=== PATIENT | female | born 1985 | race Caucasian/White ===

== ENCOUNTER 2017-02-25 22:01 | Emergency (ER) | payer MEDICAID, OTHER ==
[~2017-02-25] VITALS: Ht 154.9 cm; Wt 89.8 kg
[~2017-02-25 22:01] MED LIST: ARIP10TA11; FLUO20CA25; TPR100T
[2017-02-25] MEDS ORDERED: diphenhydrAMINE 50 MG/ML INJ (BENADRYL) ONE (22:07)
[2017-02-25] MEDS ORDERED: PROCHLORPERAZINE 10 MG/2ML INJ (COMPAZINE) ONE (22:07)
--- NOTE | 2017-02-25 22:14 | ED Headache ---
General Stated Complaint: HEADACHE Source: patient Exam Limitations: no limitations History of Present Illness Time seen by provider: 22:14 Initial Comments Patient lives in [facility]. Arrives here with reports of a frontal headache all day today. She was seen at the [facility] in [facility] today at about 5 p.m. when she received a Toradol injection for her headache. She states that typically Toradol injections worked very well for her. She has migraines frequently and takes control for them. This headache is frontal in nature and rated at 10 out of 10 which she states is fairly typical of her migraines. No head injury or fevers. She does have associated nausea without vomiting and photophobia. Timing/Duration: other (12 hours constant) Severity/Quality: constant Associated Symptoms: No confusion, No fatigue, No facial pain, No fever/chills Allergies and Home Medications Allergies Coded Allergies: Lamotrigine (Verified Allergy, Mild, 12/09/09) Home Medications Aripiprazole 10 Mg Tab.rapdis, (Reported) Fluoxetine Hcl 20 Mg Capsule, (Reported) Topiramate 100 Mg Tablet, (Reported) Constitutional: see HPI Eyes: No Symptoms Reported Ears, Nose, Mouth, Throat: no symptoms reported Respiratory: no symptoms reported Cardiovascular: no symptoms reported Genitourinary: no symptoms reported Musculoskeletal: no symptoms reported Skin: no symptoms reported Psychiatric/Neurological: See HPI, Headache Past Hezqckp-Bonrek-Zurjez Hx Patient Social History Recent Foreign Travel: No Contact w/Someone Who Travel: No Respiratory Hx Respiratory Disorders: No Cardiovascular Hx Cardiac Disorders: No Neurological Hx Neurological Disorders: No Reproductive System Hx Reproductive Disorders: No Genitourinary Hx Genitourinary Disorders: No Gastrointestinal Hx Gastrointestinal Disorders: No Musculoskeletal Hx Musculoskeletal Disorders: No Physical Exam Vital Signs Vital Sign - Last 12Hours 02/25/17 22:15 Temp 97.8 Pulse 76 Resp 18 B/P (MAP) 131/95 Pulse Ox 98 O2 Delivery Room Air Capillary Refill : General Appearance: WD/WN, no apparent distress HEENT: PERRL/EOMI, normal ENT inspection, TMs normal, pharynx normal Neck: non-tender, full range of motion Respiratory: lungs clear, normal breath sounds, no respiratory distress, no accessory muscle use Gastrointestinal: normal bowel sounds, non tender, soft Extremities: normal range of motion, non-tender Psychiatric: alert, oriented x 3 Crainal Nerves: normal hearing, normal speech, PERRL Progress/Results/Core Measures Results/Orders Medications Given in ED Current Medications Medications Dose Ordered Sig/Everardo Route Start Time Stop Time Status Last Admin Dose Admin Diphenhydramine HCl 50 mg STK-MED ONCE .ROUTE 02/25/17 22:07 02/25/17 22:12 DC 02/25/17 22:15 25 MG Prochlorperazine Edisylate 10 mg STK-MED ONCE .ROUTE 02/25/17 22:07 02/25/17 22:12 DC 02/25/17 22:15 10 MG Vital Signs/I&O Vital Sign - Last 12Hours 02/25/17 22:15 Temp 97.8 Pulse 76 Resp 18 B/P (MAP) 131/95 Pulse Ox 98 O2 Delivery Room Air Departure Communication Progress Notes 2229-Patient has had her shots on board of Compazine and Benadryl for a total of 15 minutes. She reports that her pain is now 4 out of 10 and she feels so much better. Upon arrival just a few minutes ago her headache was a 10 out of 10. We will discharged home. Impression Impression: Primary Impression: Headache Disposition: 01 HOME, SELF-CARE Condition: Improved Departure-Patient Inst. Decision time for Depature: 22:16 Referrals: NO,LOCAL PHYSICIAN (PCP) Primary Care Physician Patient Instructions: Headache, Adult (DC) Add. Discharge Instructions: 1. Return to ER for any concerns 2. See your doctor next week 3. DEREK SMITH APRN Feb 25, 2017 22:14
[2017-02-25 22:30] VITALS: BP 131/95
--- OUTSIDE RECORDS SUMMARY | 2017-03-01 08:34 | XMS REPORT | Continuity of Care Document ---
Author Author [employer] Organization [facility] Address Unknown Phone Unavailable Care Team Providers Care Acute Care Physician Name Role Phone [employer] Unavailable Unavailable Problems Problem Status Onset Date Classification Date Reported Comments Source Migraine (disorder) 2015 Diagnosis 07/20/2016 [facility] Neck pain (finding) 2015 Diagnosis 06/29/2016 [facility] Medications Medication Details Route Status Patient Instructions Ordering Provider Order Date Source No Known Medications No known medications Active [facility] Allergies, Adverse Reactions, Alerts Immunizations Immunization Date Given Site Status Last Updated Comments Source tetanus/diphth/pertuss (Tdap) adult/adol 12/26/2010 tetanus/diphth/pertuss (Tdap) adult/adol [facility] influenza virus vaccine 06/26/2008 influenza virus vaccine [facility] No data available for this section No data available for this section [facility] Results Vital Signs Encounters Location Location Details Encounter Type Encounter Number Reason For Visit Attending Provider ADM Date DC Date Status Source [facility] [id number] Ashutosh Ricci 06/25/2016 06/26/2016 [facility] [id number] Esperanza Hess 07/16/2016 07/17/2016 [facility] Procedures Procedure Code Date Perfomer Comments Source No data available for this section [facility] None [facility] Plan of Care Social History Assessment and Plan Family History Value Date Source Advance Directives Order Name Results Value Date Source
== END 2017-02-25 22:30 | disposition home or self-care (01) ==
LOC: EDUNIT# 22:01 → ER 22:05
DX: R51 Headache (principal)
CPT/HCPCS: 96372; 99284

== ENCOUNTER 2018-09-09 14:09 | Emergency (ER) | payer BC, OTHER | END 2018-09-09 15:30 | disposition home or self-care (01) | LOC: ER 14:09 ==

== ENCOUNTER 2019-04-01 20:52 | Emergency (ER) | payer BC ==
[~2019-04-01] VITALS: Ht 154.9 cm; Wt 90.7 kg
[2019-04-01] MEDS ORDERED: LORazepam INJ 2 MG/ML (ATIVAN) VIAL IVP ONE (21:15)
[2019-04-01] MEDS ORDERED: chlordiazePOXIDE 25 MG (LIBRIUM) CAP NON-FORMULARY PO ONE (21:15)
[2019-04-01] MEDS ORDERED: KETOROLAC 60 MG/2 ML VIAL IM ONE (22:15)
[2019-04-01] MEDS ORDERED: ORPHENADRINE 60 MG/2 ML (NORFLEX) AMP IM ONE (22:15)
--- NOTE | 2019-04-01 22:18 | ED Upper Extremity ---
General Chief Complaint: Upper Extremity Stated Complaint: PAIN IN RT ARM Nursing Triage Note: PT COMPLAINING OF RIGHT UPPER ARM PAIN FOR A FEW WEEKS Nursing Sepsis Screen: No Definite Risk History of Present Illness Date Seen by Provider: Apr 01, 2019 Time Seen by Provider: 22:13 Initial Comments as above vague hx of R arm pain says she noticed knot above elbow lateral pain radiates from that area up to shoulder and neck and to hand fingers never was any fall or injury is right handed, says she's been doing a lot of manual work with arm Allergies and Home Medications Allergies Coded Allergies: lamotrigine (Verified Allergy, Mild, 12/09/09) Patient Home Medication List Home Medication List Reviewed: Yes Review of Systems Constitutional: no symptoms reported EENTM: no symptoms reported Respiratory: no symptoms reported Cardiovascular: no symptoms reported Musculoskeletal: other (pain in entire right arm centered above elbow) Past Ixvwrmi-Jqhtvj-Ydqgjx Hx Patient Social History Alcohol Use: Denies Use Recreational Drug Use: No 2nd Hand Smoke Exposure: No Recent Foreign Travel: No Contact w/Someone Who Travel: No Recent Infectious Disease Expo: No Recent Hopitalizations: No Physical Abuse: No Sexual Abuse: No Immunizations Up To Date Tetanus Booster (TDap): Less than 5yrs Seasonal Allergies Seasonal Allergies: No Past Medical History Surgeries: No Respiratory: No Cardiac: No Neurological: Yes Headaches /Migraines Reproductive Disorders: No Sexually Transmitted Disease: No Genitourinary: No Gastrointestinal: No Musculoskeletal: No Endocrine: No HEENT: No Cancer: No Psychosocial: No Integumentary: No Physical Exam Vital Signs Vital Signs - First Documented 04/01/19 21:05 Temp 99.2 Pulse 96 Resp 20 B/P (MAP) 129/84 (99) Pulse Ox 99 O2 Delivery Room Air Capillary Refill : Less Than 3 Seconds Height, Weight, BMI Height: 5'1.00" Weight: 200lbs. oz. 90.149210to; BMI Method:Stated General Appearance: WD/WN HEENT: PERRL/EOMI Neck: non-tender, full range of motion, supple Cardiovascular: regular rate, rhythm Respiratory: chest non-tender, lungs clear Gastrointestinal: soft, no organomegaly Back: normal inspection Shoulder: normal inspection Elbow/Forearm: normal inspection, no evidence of injury, Right, deformity, ecchymosis, limited ROM, swelling Progress/Results/Core Measures Results/Orders My Orders Orders - RIGO CASTRO MD Ketorolac Injection (Toradol Injection) (04/01/19 22:15) Orphenadrine Injection (Norflex Injectio (04/01/19 22:15) Nursing Communication (Order) (04/01/19 22:11) Vital Signs/I&O 04/01/19 21:05 Temp 99.2 Pulse 96 Resp 20 B/P (MAP) 129/84 (99) Pulse Ox 99 O2 Delivery Room Air Blood Pressure Mean: 99 Departure Impression Primary Impression: Muscle strain of right upper arm Qualified Codes: S46.911A - Strain of unspecified muscle, fascia and tendon at shoulder and upper arm level, right arm, initial encounter Disposition: 01 HOME, SELF-CARE Condition: Improved Departure-Patient Inst. Decision time for Depature: 22:17 Referrals: NO,LOCAL PHYSICIAN (PCP/Family) Primary Care Physician Patient Instructions: Muscle Strain (DC), How to Use a Shoulder Sling Scripts Hydrocodone Bit/Acetaminophen (Hydrocodone/Acetaminophen 5/325mg Tablet) 1 Tab Tab 1 EACH PO Q4-6HR PRN for PAIN-MODERATE MDD 10 for 3 Days, TAB Prov: RIGO CASTRO MD 04/01/19 RIGO CASTRO MD Apr 01, 2019 22:18
[2019-04-01] MEDS ORDERED: ACHD5005 PO (22:22)
[2019-04-01 22:34] VITALS: BP 130/82
== END 2019-04-01 22:34 | disposition home or self-care (01) ==
LOC: EDUNIT# 20:52 → ER FS 20:54
DX: S46.911A Strain of unspecified muscle, fascia and tendon at shoulder and upper arm level, right arm, initial encounter (principal); G43.909 Migraine, unspecified, not intractable, without status migrainosus; Z88.8 Allergy status to other drugs, medicaments and biological substances; X50.9XXA Other and unspecified overexertion or strenuous movements or postures, initial encounter
CPT/HCPCS: 99284

== ENCOUNTER 2019-06-22 15:55 | Emergency (ER) | payer BC ==
[~2019-06-22] VITALS: Ht 154.9 cm; Wt 95.6 kg
[~2019-06-22 15:55] MED LIST changes: +ACHD5005 PO
[2019-06-22] MEDS ORDERED: PROMETHAZINE INJ 25 MG/ML (PHENERGAN) AMP IM ONE (16:30)
[2019-06-22] MEDS ORDERED: KETOROLAC 60 MG/2 ML VIAL IM ONE (16:30)
--- NOTE | 2019-06-22 16:43 | ED General ---
General Stated Complaint: MIGRAINE History of Present Illness Date Seen by Provider: Jun 22, 2019 Time Seen by Provider: 16:38 Initial Comments 33-year-old female says she had onset of headache this morning left retro-orbital throbbing associated with photophobia and nausea but no vomiting Patient denies trauma, says this headache is very similar to multiple headaches she's had in the past and brings up the fact that she has responded to Toradol and Phenergan in the past Allergies and Home Medications Allergies Coded Allergies: lamotrigine (Verified Allergy, Mild, 12/09/09) Home Medications Hydrocodone Bit/Acetaminophen 1 Tab Tab, 1 EACH PO Q4-6HR PRN for PAIN-MODERATE Prescribed by: RIGO CASTRO on 04/01/19 2222 Patient Home Medication List Home Medication List Reviewed: Yes Review of Systems Review of Systems Constitutional: No chills, No fever EENTM: No ear pain Respiratory: no symptoms reported Cardiovascular: no symptoms reported Gastrointestinal: No abdominal pain; nausea; No vomiting Genitourinary: no symptoms reported Musculoskeletal: no symptoms reported Past Elqsyyp-Jnegaq-Mvwsfl Hx Patient Social History 2nd Hand Smoke Exposure: No Recent Foreign Travel: No Contact w/Someone Who Travel: No Recent Hopitalizations: No Immunizations Up To Date Tetanus Booster (TDap): Less than 5yrs Seasonal Allergies Seasonal Allergies: No Past Medical History Surgeries: No Respiratory: No Cardiac: No Neurological: Yes Headaches /Migraines Reproductive Disorders: No Sexually Transmitted Disease: No Genitourinary: No Gastrointestinal: No Musculoskeletal: No Endocrine: No HEENT: No Cancer: No Psychosocial: No Integumentary: No Physical Exam Vital Signs Vital Signs - First Documented 06/22/19 16:10 Temp 36.2 Pulse 83 Resp 18 B/P (MAP) 121/73 (89) Pulse Ox 96 O2 Delivery Room Air Capillary Refill : Height, Weight, BMI Height: 5'1.00" Weight: 200lbs. oz. 90.193344gg; BMI Method:Stated General Appearance: Mild Distress Eyes: Bilateral Eye PERRL, Bilateral Eye EOMI HEENT: Moist Mucous Membranes Neck: Full Range of Motion, Supple Respiratory: Normal Breath Sounds, No Accessory Muscle Use Cardiovascular: Regular Rate, Rhythm Gastrointestinal: Normal Bowel Sounds, Non Tender, Soft Neurologic/Psychiatric: Alert, Oriented x3, No Motor/Sensory Deficits, Normal Mood/Affect, delivery specialist II-XII Norm as Tested Progress/Results/Core Measures Suspected Sepsis SIRS Temperature: Pulse: Respiratory Rate: Blood Pressure / Mean: Results/Orders My Orders Orders - RIGO CASTRO MD Ketorolac Injection (Toradol Injection) (06/22/19 16:30) Promethazine Injection (Phenergan Injec (06/22/19 16:30) Medications Given in ED Current Medications Medications Dose Ordered Sig/Everardo Route Start Time Stop Time Status Last Admin Dose Admin Ketorolac Tromethamine 60 mg ONCE ONCE IM 06/22/19 16:30 06/22/19 16:31 DC 06/22/19 16:47 60 MG Promethazine HCl 25 mg ONCE ONCE IM 06/22/19 16:30 06/22/19 16:31 DC 06/22/19 16:47 25 MG Vital Signs/I&O 06/22/19 16:10 Temp 36.2 Pulse 83 Resp 18 B/P (MAP) 121/73 (89) Pulse Ox 96 O2 Delivery Room Air Capillary Refill : Progress Note : Progress Note Headache is improved after IM meds not resolved but significantly improved Departure Impression Primary Impression: Migraine Qualified Codes: G43.909 - Migraine, unspecified, not intractable, without status migrainosus Disposition: 01 HOME, SELF-CARE Condition: Improved Departure-Patient Inst. Decision time for Depature: 17:47 Referrals: NO,LOCAL PHYSICIAN (PCP/Family) Primary Care Physician Patient Instructions: Migraine Headache (DC) Scripts Ondansetron (Ondansetron Odt) 4 Mg Tab.rapdis 4 MG PO TID for Nausea, #14 TAB Prov: RIGO CASTRO MD 06/22/19 Butalbital/Aspirin/Caffeine (Fiorinal 50-325-40 mg Capsule) 1 Each Capsule 1 EACH PO QID for Headache, #20 CAP Prov: RIGO CASTRO MD 06/22/19 RIGO CASTRO MD Jun 22, 2019 16:43 POS
[2019-06-22] MEDS ORDERED: BUTA1CAP17 PO (17:49)
[2019-06-22] MEDS ORDERED: ONDA4TAB11 PO (17:49)
[2019-06-22 18:27] VITALS: BP 122/73
== END 2019-06-22 18:27 | disposition home or self-care (01) ==
LOC: EDUNIT# 15:55 → ER FS 15:56
DX: G43.909 Migraine, unspecified, not intractable, without status migrainosus (principal); Z88.8 Allergy status to other drugs, medicaments and biological substances
CPT/HCPCS: 96372; 99284

== ENCOUNTER 2020-01-22 19:32 | Emergency (ER) | payer BC, OTHER ==
[~2020-01-22] VITALS: Ht 165.1 cm; Wt 95.4 kg
[~2020-01-22 19:32] MED LIST changes: +BUTA1CAP17 PO; +ONDA4TAB11 PO
[2020-01-22] MEDS ORDERED: ONDANSETRON 4 MG (ZOFRAN) ORAL DISSOLVE TAB PO STA (20:01)
--- NOTE | 2020-01-22 20:04 | ED Headache ---
General Chief Complaint: Head/Cervical Problems Stated Complaint: MIGRIANE Nursing Triage Note: pt states typical migraine for her, started mid day today Nursing Sepsis Screen: No Definite Risk Source: patient Exam Limitations: no limitations History of Present Illness Date Seen by Provider: Jan 22, 2020 Time Seen by Provider: 19:50 Initial Comments Patient arrives by private conveyance to the ER with chief complaint of a headache that started after mowing the grass this morning. She says around her eyes and she has tenderness in her some bilateral sinuses without drainage but she does have congestion. She has a history of migraine headaches. She took Aleve 3 hours ago as well as CBD oil which did not give her any relief. She is to follow with a provider in [place] and was on a prophylactic medication for her migraines but since she no longer falls with her she says no one has refilled medicine for her. She does not know the name of the medicine is. She has allergies to several antiseizure medicines it could've been used for prophylaxis. She's having no fever, chills, cough, shortness of breath. She has some nausea without vomiting. She just completed her period last week. Allergies and Home Medications Allergies Coded Allergies: lamotrigine (Verified Allergy, Mild, 12/09/09) Home Medications Butalbital/Aspirin/Caffeine 1 Each Capsule, 1 EACH PO QID Prescribed by: RIGO CASTRO on 06/22/19 174 Hydrocodone Bit/Acetaminophen 1 Tab Tab, 1 EACH PO Q4-6HR PRN for PAIN-MODERATE Prescribed by: RIGO CASTRO on 04/01/19 2222 Ondansetron 4 Mg Tab.rapdis, 4 MG PO TID Prescribed by: RIGO CASTRO on 06/22/19 1749 Patient Home Medication List Home Medication List Reviewed: Yes Review of Systems Review of Systems Constitutional: No chills, No diaphoresis Eyes: Denies Blindness, Denies Blurred Vision Ears, Nose, Mouth, Throat: denies ear pain, denies ear discharge Respiratory: No cough, No short of breath Cardiovascular: No chest pain, No edema Gastrointestinal: No abdominal pain; nausea; No vomiting Genitourinary: No discharge, No dysuria : No (negative test in the ER) Musculoskeletal: No back pain, No joint pain All Other Systems Reviewed Negative Unless Noted: Yes Past Uxemdsi-Iemcwk-Arybuf Hx Patient Social History Alcohol Use: Denies Use Recreational Drug Use: No Smoking Status: Never a Smoker 2nd Hand Smoke Exposure: No Recent Foreign Travel: No Contact w/Someone Who Travel: No Recent Infectious Disease Expo: No Recent Hopitalizations: No Physical Abuse: No Sexual Abuse: No Mistreated: No Fear: No Immunizations Up To Date Tetanus Booster (TDap): Less than 5yrs Seasonal Allergies Seasonal Allergies: No Past Medical History Surgeries: Yes (Cyst removal from knee) Respiratory: No Cardiac: No Neurological: Yes Headaches /Migraines Reproductive Disorders: No Sexually Transmitted Disease: No Genitourinary: No Gastrointestinal: No Musculoskeletal: No Endocrine: No HEENT: No Cancer: No Psychosocial: No Integumentary: No Blood Disorders: No Physical Exam Vital Signs Vital Signs - First Documented 01/22/20 19:48 Temp 36.9 Pulse 88 Resp 18 B/P (MAP) 147/86 (106) Pulse Ox 98 O2 Delivery Room Air Capillary Refill : Less Than 3 Seconds Height, Weight, BMI Height: 5'1.00" Weight: 200lbs. oz. 90.637492tm; 34.00 BMI Method:Stated General Appearance: WD/WN, mild distress HEENT: PERRL/EOMI, TMs normal, pharynx normal, other (tenderness to palpation over the frontal and maxillary sinuses bilaterally. Nasal passage way is clear with some mild congestion but no purulence or discharge) Neck: non-tender, full range of motion, supple, normal inspection Cardiovascular: normal peripheral pulses, regular rate, rhythm Respiratory: lungs clear, normal breath sounds Gastrointestinal: normal bowel sounds, non tender, soft Psychiatric: alert, oriented x 3 Crainal Nerves: normal hearing, normal speech, PERRL Motor/Sensory: no motor deficit, no sensory deficit Skin: normal color, warm/dry Progress/Results/Core Measures Results/Orders My Orders Orders - CARA CASEY Urine Bedside (01/22/20 19:50) Dexamethasone Injection (Decadron Inject (01/22/20 20:15) Promethazine Injection (Phenergan Injec (01/22/20 20:15) Ondansetron Oral Dissolve Tab (Zofran (01/22/20 20:01) Ketorolac Injection (Toradol Injection) (01/22/20 20:15) Diphenhydramine Tablet (Benadryl Tablet) (01/22/20 20:15) Vital Signs/I&O 01/22/20 19:48 Temp 36.9 Pulse 88 Resp 18 B/P (MAP) 147/86 (106) Pulse Ox 98 O2 Delivery Room Air Blood Pressure Mean: 106 Progress Progress Note : Time: 20:07 Progress Note Migraine versus sinus headache. Plan to treat her with Tylenol, half a dose of Toradol, Benadryl and Phenergan as well as a dose of Decadron which can help reduce congestion in her nose as well as recurrent migraines. We'll put her out with a prescription for Augmentin for her to start taking if she doesn't see improvement in the next day or so and her headache. Suspect maxillary sinus infection. Departure Impression Primary Impression: Migraine Qualified Codes: G43.009 - Migraine without aura, not intractable, without status migrainosus Additional Impressions: Sinus headache Acute sinusitis Qualified Codes: J01.00 - Acute maxillary sinusitis, unspecified Disposition: HOME, SELF-CARE Condition: Stable Departure-Patient Inst. Decision time for Depature: 20:08 Referrals: NO,LOCAL PHYSICIAN (PCP/Family) Primary Care Physician Patient Instructions: Migraines in Adults, Sinusitis in Adults Add. Discharge Instructions: Your migraine headache may have been triggered by sinus infection. We have given you a dose of steroids which should last for several days. If you does not see improvement in the next 1-2 days or if you experience fever or nasal discharge then you should start the antibiotics that were sent to the [facility] pharmacy. One tablet twice a day for the next 10 days. Drink lots of fluids and get lots of sleep over the next few days. Plan to reestablish care with a primary care doctor and discuss medicines that might prevent headaches. Continue taking your allergy medicine such as Claritin, Zyrtec etc. All discharge instructions reviewed with patient and/or family. Voiced understanding. Scripts Amoxicillin/Potassium Clav (Augmentin 875-125 Tablet) 1 Each Tablet 1 EACH PO BID for 10 Days, #20 TAB 0 Refills Prov: CARA CASEY 01/22/20 CARA CASEY Jan 22, 2020 20:04
[2020-01-22] MEDS ORDERED: AMOX-358 PO (20:12)
[2020-01-22] MEDS ORDERED: ACETAMINOPHEN 500 MG TAB (TYLENOL) PO ONE (20:15)
[2020-01-22] MEDS ORDERED: diphenhydrAMINE 25 MG TAB (BENADRYL) PO ONE (20:15)
[2020-01-22] MEDS ORDERED: DEXAMETHASONE 4 MG/ML SDV (DECADRON) IM ONE (20:15)
[2020-01-22] MEDS ORDERED: KETOROLAC 30 MG/ML VIAL IM ONE (20:15)
[2020-01-22] MEDS ORDERED: PROMETHAZINE INJ 25 MG/ML (PHENERGAN) AMP IM ONE (20:15)
[2020-01-22 20:22] VITALS: BP 142/110
--- OUTSIDE RECORDS SUMMARY | 2020-01-22 20:25 | XMS REPORT ---
Author Author [employer] at risk specialist [facility] [place] Address [address] [address] Care Team Providers Care Bundles Hanger Name Role Phone NO, LOCAL PHYSICIAN Unavailable Unavailable DEREK SMITH APRN Unavailable Unavailable CARA CASEY Unavailable Unavailable TEA KOTHARI Unavailable Unavailable RIGO CASTRO MD Unavailable Unavailable NO, LOCAL PHYSICIAN PCP Unavailable Unavailable Unavailable CARA CASEY MD Unavailable Unavailable Unavailable Unavailable Unavailable Unavailable Unavailable Unavailable Unavailable Unavailable Unavailable Unavailable Allergies No Information Medications Medication Ingredient Drug Dose Dates Status Sig Sig Care Class(es) (Normalized) (Original) Provid er no Acetaminoph Opioid 04-02-20 Complete no Acetaminophe no information en / Agonist 19 - d information n/Hydrocodo n name (1 source.) HYDROcodone 04-04-20 e Bitart 19 Discontinued 1 ORAL Q4-6HR as needed for Pain-Moderat e 3 April 01, 2019 10:22pm April 04, 2019 no ARIPiprazol Atypical no no Aripiprazole no information e Antipsychot informat information Active N OT name (1 source.) ic ion APPLICABLE aspirin 325 Aspirin / Platelet 06-22-20 Complete no Butalbit al/A no mg / butalbital Aggregation 19 - d information spirin/C affe name butalbital / Caffeine Inhibitor, 06-22-20 ine 50 mg / Barbiturate 19 - Discontinued caffeine 40 , 06-22-20 1 ORAL Four mg oral Nonsteroida 19 Times Daily capsule (1 l for Headache source.) Anti-inflam June Drug, 5:49pm Central (One-Time) Nervous System Stimulant, Methylxanth ine ondansetron Ondansetron Serotonin-3 06-22-20 Complete no Ond ansetron no 4 mg Receptor 19 - d information Discontinued n davis disintegrat Antagonist 11-01-20 4 ORAL Three ing oral 19 - Times A Day tablet (1 06-22-20 for Nausea source.) June 22, 2019 5:49pm (One-Time) Problems Active Problems Problem Normalized Date Last Normalized Normalized Provider Fa cility Classification Problem(s) Recorded Problem Problem Sta tus Duration Allergic Allergy status Episodic Active ILSET SIBLEY , No t Available reactions (10 to other MD (36008) sources.) drugs, medicaments and biological substances status Headache; Migraine Chronic Active LISET SIBLEY , Not Avai lable including Translations: (28709) migraine (13 [ MIGRAINE, sources.) UNSP, NOT INTRACTABLE, WITHOUT] Other Pain in right Episodic Active BUNNY MOODY Via connective arm [facility] tissue disease [facility] - (4 sources.) [place] ([address]00) Sprains and Strain of Episodic Active BUNNY MOODY V ia strains (4 unspecified [facility] sources.) muscle, fascia Hospital - and tendon at [place] shoulder and (70684) upper arm level, right arm, initial encounter Past or Other Problems Problem Normalized Date Last Normalized Normalized Provider Fa cility Classification Problem(s) Recorded Problem Problem Sta tus Duration External cause Other and no information no information BUNNY CHAKRABORTY Via codes: unspecified [facility] (2 or strenuous [place] sources.) movements or (66835) postures, initial encounter External cause Other and Episodic Completed VC Yaw MOODY Via codes: unspecified [facility] (2 or strenuous [place] sources.) movements or (69402) postures, initial encounter Procedures The data below is from unstructured sourcesNo procedure information available.No procedure information available.No procedure information available.No procedure information available.No procedure informa tion available. Immunizations Normalized Immunization Date Notes Care Provider Facili ty Immunization influenza, 09-04-2019 no information no name [facility] ealt injectable, [facility] [place] quadrivalent, - [facility] contains (40992) preservative no information 06-22-2019 no information LOCAL NO [facility] (69186) Results Test Name Value Interpretation Reference Range Date Time Fa cility (Normalized) (Normalized) (Medline Reference) not yet categorized on null BLO Negative (no code) [facility] ([id number]) KET slightly (no code) [facility] cloudy~yellow~ye [facility] s~negative~negat [facility] cinthya~negative (66140) SG 1.030 (no code) [facility] (73212) URO 0 (no code) [facility] (58155) laboratory on null pH (Bld) 7.0 [pH] (no code) 7.38 - 7.42 [pH] [facility] (17109) Protein (U) Negative (no code) 0 - 20 mg/dL [facility] alth [Mass/Vol] [facility] () not yet categorized on 2019-11-01 Control pos~neg~pass (no code) [facility] (72822) Exp date 06-20-2022 (no code) [facility] ([id number]) Lot # [id number] (no code) [facility] (37798) laboratory on 2019-09-28 Bacteria SEE NOTE (no code) [facility] identified Cx [facility] (U) [facility] (08968) laboratory on 2019-07-25 Free T4 0.9 ng/dL (N) 0.9 - 2.2 ng/dL [facility] [Mass/Vol] [facility] (40912) TSH Qn 3.55 m[IU]/L (N) 0.4 - 4 m[IU]/L [facility] (00219) Vital Signs The data below is from unstructured sources Vital Response Date/Time Temperature (Fahrenheit) 97.8 degree s F (97.6 - 99.5) 02/25/2017 10:15pm Temperature (Calculated Celsius) 36. 97697 degrees C (36.4 - 37.5) 02/25/2017 10:15pm Temperature Source Temporal 02/25/2017 10:15pm Pulse Rate (adult) 76 bpm (60 - 90) 02/25/2017 10:15pm Respiratory Rate 18 bpm (12 - 24) 02/25/2017 10:15pm O2 Sat by Pulse Oximetry 98 % (88 - 100) 02/25/2017 10:15pm Blood Pressure 131/95 mm Hg 02/25/2017 10:15pm Blood Pressure Mean 107 mm Hg 02/25/2017 10:15pm Pain Numeric Pain Scale 10-Worst Possible Pain 02/25/2017 10:15pm Height (Feet) 5 feet 02/2017 10:15pm Height (Inches) 1.00 inches 02/25/2017 10:15pm Height (Calculated Centimeters) 154. 570926 cm 02/25/2017 10:15pm Weight (Pounds) 198 pounds 02/25/2017 10:15pm Weight (Calculated Kilograms) 89.811 290 kilograms 02/25/2017 10:15pm Capillary Refill Capillary Refill Less Than 3 Seconds 02/25/2017 10:15pm Height 5 ft 1 in 017 10:15pm Weight 198 lb 02/25/2017 10:15pm Body Mass Index 37.4 kg/m^2 02/25/2017 10:15pm Vital Response Date/Time Temperature (Fahrenheit) 98.0 degree s F (97.6 - 99.5) 09/09/2018 3:24pm Temperature (Calculated Celsius) 36. 24292 degrees C (36.4 - 37.5) 09/09/2018 3:24pm Temperature Source Temporal 09/09/2018 3:24pm Pulse Rate (adult) 80 bpm (60 - 90) 09/09/2018 3:24pm Respiratory Rate 18 bpm (12 - 24) 09/09/2018 3:24pm O2 Sat by Pulse Oximetry 99 % (88 - 100) 09/09/2018 3:24pm Blood Pressure 103/75 mm Hg 09/09/2018 3:24pm Blood Pressure Mean 84 mm Hg (65 - 110) 09/09/2018 3:24pm Pain Numeric Pain Scale 3 3:24pm Height (Feet) 5 feet 2:15pm Height (Inches) 6.00 inches 09/09/2018 2:15pm Height (Calculated Centimeters) 167. 354967 cm 09/09/2018 2:15pm Height Method Estimated 09/09/2018 2:15pm Weight (Pounds) 160 pounds 09/09/2018 2:15pm Weight (Calculated Grams) 76793.78 gm 09/09/2018 2:15pm Weight (Calculated Kilograms) 72.574 780 kilograms 09/09/2018 2:15pm Weight Method Stated 2:15pm Capillary Refill Capillary Refill Less Than 3 Seconds 09/09/2018 2:15pm Height 5 ft 6 in 019 2:15pm Weight 160 lb 09/09/2018 2:15pm Body Mass Index 25.8 kg/m^2 09/09/2018 2:15pm Vital Reading Result Col lection Date/Time Vital Reading Result Col lection Date/Time Interventions No Information Plan of Treatment Normalized Care Care Detail Care Activity Date Care Provider F acility Activity Patient Education Migraine Headache no information LOCAL NO Pender Via (DC) [facility] ([id number]) Patient referral no information no information LOCAL NO Asc ension [facility] ([id number]) Goals Patient Goal Desired Goal no information no information Social History Normalized Code Original Code Date Value Tobacco smoking status Tobacco smoking status no information Never smoked tobacco NHIS NHIS (finding) no information no information 06-22-2019 Occasionally Us es no information no information 12-09-2009 No no information no information 06-22-2019 Never a Smoker Sex Assigned At Sex Assigned At no information F emale Functional Status No Information Mental Status Status Assessment Result Care Provider Facility Cognitive function Comprehension Ability LOCAL NO Asce nsion Via [facility] ([id number]) Encounters Encounter Normalized Encounter Encounter Diagnosis Care Provi mariel Organization Date Type 01-22-2020 Emergency department no information CARA CASEY MD (no [facility] patient visit phone) [facility] (no phone) 06-22-2019 Emergency department no information (no phone) [facility] - patient visit Hospital (no phone) 06-22-2019 06-22-2019 Emergency department no information no name no organization name - patient visit 06-22-2019 04-01-2019 Emergency department no information no name no organization name - patient visit 04-01-2019 04-01-2019 Emergency department no information no name no organization name - patient visit 04-01-2019 09-09-2018 Emergency department no information LISET Rasheed [employer] no organization name - patient visit Phone: 09-09-2018 11-11-2019 Patient encounter no information TEA Bertrand TAYE (no [facility]) (no phone) [facility] (no phone) 11-07-2019 Patient encounter no information TEA Bertrand TAYE (no [facility] procedure phone) [facility] (no phone) 11-01-2019 Patient encounter no information (no phone) [facility] procedure [facility] (no phone) 10-12-2019 Patient encounter no information TEA Bertrand TAYE (no [facility] procedure phone) [facility] (no phone) 09-28-2019 Patient encounter no information TEA Bertrand TAYE (no [facility] procedure phone) (no phone) (no [facility] phone) [place] (no phone) 09-04-2019 Patient encounter no information no name no or ganization name procedure 08-23-2019 Patient encounter no information no name no or ganization name procedure 08-14-2019 Patient encounter no information no name no or ganization name procedure 07-25-2019 Patient encounter no information no name no or ganization name procedure 06-22-2019 Patient encounter no information no name no or ganization name procedure 05-04-2019 Patient encounter no information no name no or ganization name procedure 05-04-2019 Patient encounter no information no name no or ganization name procedure 04-01-2019 Patient encounter no information no name no or ganization name procedure 03-10-2019 Patient encounter no information no name no or ganization name procedure 03-06-2019 Patient encounter no information no name no or ganization name procedure 02-13-2019 Patient encounter no information no name no or ganization name procedure 01-08-2019 Patient encounter no information no name no or ganization name procedure 09-15-2018 Patient encounter no information no name no or ganization name procedure 09-09-2018 Patient encounter no information no name no or ganization name procedure 08-24-2018 Patient encounter no information no name no or ganization name procedure Medical Equipment The data below is from unstructured sourcesNo Medical Equipment Information available Payers Normalized Payer Value [employer] Blue [employer] [id number] ([id number]) [employer] Blue [employer] no information ([id number]) Evaluation note Note Type Note Facility Evaluation No Assessments Information Available A scension note Via [facility] ([id number]) Advance Directives Directive Response Recor ded Date/Time Advance Directives No 10:15pm Health Care Power of Referral Nurse No 02/25/17 10:15pm Organ Donor No 02/25/17 10:15pm Resuscitation Status Full Code 02/25/17 10:15pm Directive Response Recor ded Date/Time Advance Directives No 10:15pm Health Care Power of Referral Nurse No 02/25/17 10:15pm Organ Donor No 02/25/17 10:15pm Advance Directive Response Recorded Date/Time Advance Directives No No 2018 4:10pm Health Care Power of Referral Nurse No June 22, 2019 4:10pm Organ Donor No June 22, 2019 4:10pm Resuscitation Status Full Code June 22, 2019 4:10pm Discharge Instructions No hospital discharge instruction information available.No hospital discharge instruction information available. Chief Complaint and Reason for Visit Chief Complaint Head/Cervical Proble ms Reason for Visit Migraine Chief Complaint Head/Cervical Proble ms Reason for Visit [id number] Additional Source Comments This clinical document has been generated using [employer] software that has been certified by the Office of the National Coordinator for Health Information Technology (ONC 15.99.04.3023.[id number].[id number]) and the National Committee for A P Mechanic (NCQA, as an eMeasure certified technology). FOR RECORDS PERTAINING TO PATIENTS WHO ARE OR HAVE BEEN ENROLLED IN A CHEMICAL D EPENDENCY/SUBSTANCE ABUSE PROGRAM, SOME INFORMATION MAY BE OMITTED. This clinica l summary was aggregated from multiple sources. Caution should be exercised in using it in the provision of clinical care. This summary normalizes information from multiple sources, and as a consequence, information in this document may ma terially change the coding, format and clinical context of patient data. In vasu tion, data may be omitted in some cases. CLINICAL DECISIONS SHOULD BE BASED ON T HE PRIMARY CLINICAL RECORDS. [employer] provides no warranty or guara ntee of the accuracy or completeness of information in this document.The followi ng information is based on time limited clinical information
--- OUTSIDE RECORDS SUMMARY | 2020-01-22 20:25 | XMS REPORT | Summary of Care ---
Author Author [facility] Address Unknown Phone Unavailable Encounter [facility] [id number] Date(s): 09/24/19 - 09/24/19 [facility] [address] [place] [address]- [place] [phone] Discharge Disposition: Home - 01 Attending Physician: COURTNEY ESCALERA DO Admitting Physician: COURTNEY ESCALERA DO Referring Physician: COURTNEY ESCALERA DO Vital Signs No data available for this section Problem List No data available for this section Allergies, Adverse Reactions, Alerts No data available for this section Medications No data available for this section Results No data available for this section Immunizations No data available for this section Procedures No data available for this section Social History Social History Type Response Functional Status No data available for this section Assessment and Plan No data available for this section Hospital Discharge Instructions No data available for this section
--- OUTSIDE RECORDS SUMMARY | 2020-01-22 20:25 | XMS REPORT | Continuity of Care Document ---
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 childbirth 09/20/2019 Diagnosis 09/20/2019 [facility] Disorder of thyroid gland 09/20/2019 Problem 09/20/2019 [facility] Medications Medication Details Route Status Patient Instructions Ordering Provider Order Date Source Benadryl Benadryl Active [facility] Allergies, Adverse Reactions, Alerts Substance Category Reaction Severity Reaction type Status Date Reported Comments Source Lamictal Allergy to substance 09/20/2019 [facility] Vagisil Anti-itch Nausea Allergy to substance 09/20/2019 [facility] Immunizations No Data Provided for This Section Results Order Name Results Value Reference Range Date Interpretation Comments Source No data available for this section No data available for this section [facility] Pathology Reports No Data Provided for This Section Diagnostic Reports Report Value Date Source US Breast Complete Bilateral Patient Name: JUSTINA CARRASCO : 1985 [facility] [address] [place] [address]- Radiology Reports CPT code 74464 CDM code CDM description [id number] US Breast Complete Bilateral Reason For Exam N64.3 Report EXAM: BREAST ULTRASOUND BILATERAL. INDICATION: Bilateral nipple discharge. Masses seen on diagnostic mammogram. FINDINGS: Regions evaluated include all four quadrants, subareolar area and axilla. There are numerous bilateral small cysts as well as groups of cysts or minimally complex cyst with occasional dilated duct. There is no solid mass or shadowing mass. No significant axillary adenopathy. IMPRESSION: Negative bilateral breast ultrasound Dictated by Dr. Abdias Christiansen MD Dictated on 2019 12:[address] Abdias Christiansen MD Location [id number] Final Transcribed by: MARLYS 09/24/19 12:30 Signed by: ABDIAS CHRISTIANSEN MD 09/24/19 12:30 2019 [facility] [place] Mammogram Diagnostic Digital Rick Patient Name: JUSTINA CARRASCO : 1985 [facility] [address] [place] [id number]- Radiology Reports CPT code 70410 CDM code CDM description [id number] [place] Mammogram Diagnostic Digital Rick Reason For Exam N64.3 Report . EXAM: MAMMOGRAM FULL FIELD DIGITAL WITDIAGNOSTIC BILATERAL INDICATION: Chronic, bilateral nipple discharge. Density: B---- 25-50 % - scattered fibroglandular densities FINDINGS: No prior study for comparison. Breast parenchymal tissue is moderately dense. The MLO view of the right breast shows possible 13 x 10 mm oval density approximately 8 cm posterior to the nipple in the slightly upper breast. Left breast shows nodular regions. There is a 9 x 8 mm nodule superior to the nipple level fairly superficial and superiorly. This measures approximately 1 cm deep to the skin. There is a more posterior oval nodule measuring 11 x 8. Tiny more posterior central ovary or nodule measures 4 x 2 mm. There is no suspicious calcification, skin thickening, nipple retraction or significant axillary adenopathy. IMPRESSION: 1. Possible oval nodules in each breast. This may represent nodular breast tissue. Bilateral breast ultrasound be obtained for further evaluation. Subsequent ultrasound demonstrates these masses represent cysts. Routine follow-up suggested. BI RADS 2- Benign Findings A patient report letter will also be mailed directly to the patient within [address]. [address] Abdias Christiansen MD Dictated on 2019 11:[address] Abdias Christiansen MD Radiology Reports Report Location [id number] Mammography Final Transcribed by: MARLYS 09/24/19 15:52 Signed by: ABDIAS CHRISTIANSEN MD 09/24/19 15:52 Technologist: YAMILETH 2019 [facility] Consultation Notes No Data Provided for This Section Discharge Summaries No Data Provided for This Section History and Physicals No Data Provided for This Section Vital Signs Vital Sign Value Date Comments Source BP Diastolic 76 mm[Hg] 09/20/2019 [facility] Height 61 [in_i] 09/20/2019 [facility] BMI (Body Mass Index) 39.7 kg/ m2 09/20/2019 [facility] BP Systolic 114 mm[Hg] 09/20/2019 [facility] Body Weight 210.2 [lb_av] 09/20/2019 [facility] Encounters Location Location Details Encounter Type Encounter Number Reason For Visit Attending Provider ADM Date DC Date Status Source [facility] 110 O [id number] N64.3 MATILDE CHAVARRIA DO 2019 2019 Active [facility] Matilde Chavarria, DO: [address] [place] [address], Ph. [phone] [id number] Matilde Chavarria 09/20/2019 [facility] Procedures Procedure Code Date Perfomer Comments Source MAMMO, diagnostic, digital, bilateral 09/20/2019 [facility] Operative Procedure on Knee [facility] Percutaneous Extraction of Kidney Stone with Fragmentation Procedure [facility] Bilateral Tubal Ligation [facility] Plan of Care Plan of Care Date Source Reminders Provider Appointments None recorded. Lab None recorded. Referral None recorded. Procedures None recorded. Surgeries None recorded. Imaging MAMMO, Diagnostic, Digital, Bilateral 09/20/2019 [facility] [place] (Bi-Directional) 09/20/2019 [facility] Social History Social History Date Source Social History TypeResponse 09/25/2019 [facility] Tobacco Smoking Status Heavy Tobacco Smoker (1 PPD) 09/20/2019 [facility] Assessment and Plan No Data Provided for This Section Family History No Data Provided for This Section Advance Directives No Data Provided for This Section Functional Status No Data Provided for This Section
--- OUTSIDE RECORDS SUMMARY | 2020-01-22 20:25 | XMS REPORT | Continuity of Care Document ---
Author Organization Unknown Address Unknown Phone Unavailable Allergies Active Description Code Type Severity Reaction Onset Reported/Identified Relationship to Patient Clinical Status Yes lamotrigine [id number] Drug Aller gy Mild N/A 12/09/2009 Medications There is no data. Problems Date Dx Coded Attending Type Code Diagnosis Diagnosed By 02/25/2017 DEREK SMITH APRN Ot R51 HEADACHE 09/09/2018 LISET SIBLEY MD Ot G43.909 MIGRAINE, UNSP, NOT INTRACTABLE, WITHOUT 09/09/2018 LISET SIBLEY MD Ot Z88. 8 ALLERGY STATUS TO OTH DRUG/MEDS/BIOL SUB 09/12/2018 LISET SIBLEY MD Ot G43.909 MIGRAINE, UNSP, NOT INTRACTABLE, WITHOUT 09/12/2018 LISET SIBLEY MD Ot Z88. 8 ALLERGY STATUS TO OTH DRUG/MEDS/BIOL SUB 04/01/2019 RIGO CASTRO MD Ot G43.909 MIGRAINE, UNSP, NOT INTRACTABLE, WITHOUT 04/01/2019 RIGO CASTRO MD Ot M79.601 PAIN IN RIGHT ARM 04/01/2019 RIGO CASTRO MD Ot S46.911A STRAIN UNSP MUSC/FASC/TEND AT [facility]/ A 04/01/2019 RIGO CASTRO MD Ot X50.9XXA OTHER AND UNSPECIFIED OVREXRTN OR STRNOU 04/01/2019 RIGO CASTRO MD Ot Z88. 8 ALLERGY STATUS TO OTH DRUG/MEDS/BIOL SUB 04/05/2019 RIGO CASTRO MD Ot G43.909 MIGRAINE, UNSP, NOT INTRACTABLE, WITHOUT 04/05/2019 RIGO CASTRO MD Ot M79.601 PAIN IN RIGHT ARM 04/05/2019 RIGO CASTRO MD Ot S46.911A STRAIN UNSP MUSC/FASC/TEND AT [facility]/UP A 04/05/2019 RIGO CASTRO MD Ot X50.9XXA OTHER AND UNSPECIFIED OVREXRTN OR STRNOU 04/05/2019 RIGO CASTRO MD Ot Z88. 8 ALLERGY STATUS TO OTH DRUG/MEDS/BIOL SUB 06/22/2019 RIGO CASTRO MD Ot G43.909 MIGRAINE, UNSP, NOT INTRACTABLE, WITHOUT 06/22/2019 RIGO CASTRO MD Ot R51 HEADACHE 06/22/2019 RIGO CASTRO MD Ot Z88. 8 ALLERGY STATUS TO OTH DRUG/MEDS/BIOL SUB 06/26/2019 RIGO CASTRO MD Ot G43.909 MIGRAINE, UNSP, NOT INTRACTABLE, WITHOUT 06/26/2019 RIGO CASTRO MD Ot R51 HEADACHE 06/26/2019 RIGO CASTRO MD Ot Z88. 8 ALLERGY STATUS TO OTH DRUG/MEDS/BIOL SUB Procedures There is no data. Results Test Result Range TSH w/ FREE T4 - 07/25/19 11:24 TSH 3.55 mIU/L NRG T4, FREE 0.9 ng/dL 0.8-1.8 CULTURE, URINE - 09/28/19 16:29 CULTURE, URINE, ROUTINE SEE NOTE NRG Encounters ACCT No. Visit Date/Time Discharge Status Pt. Type Provider Facility Loc./Unit Complaint [id number] 11/11/2019 12:00:00 11/11/2019 23:59:5 9 [facility] Outpatient Veronique Alfredo [facility] [id number] 09/28/2019 15:40:00 Document Registration [id number] 07/25/2019 11:00:00 Document Registration [id number] 06/22/2019 15:56:00 18:27:00 DIS Emergency RIGO CASTRO MD Via [facility] ER FS MIGRAINE [id number] 04/01/2019 20:54:00 22:34:00 DIS Emergency RIGO CASTRO MD Via [facility] ER FS PAIN IN RT ARM [id number] 09/09/2018 14:09:00 15:30:00 DIS Emergency LISET SIBLEY MD [facility] ER MIGRAINE [id number] 02/25/2017 22:05:00 017 22:30:00 DIS Emergency DEREK SMITH APRN [facility] ER HEADACHE [id number] 02/25/2017 22:08:00 Document Registration
--- OUTSIDE RECORDS SUMMARY | 2020-01-22 20:25 | XMS REPORT ---
Author Organization Unknown Address [address] [place] [address] Phone [phone] Reason for Visit New patient with concern of black discha rge from breast. Assessment and Plan The following list includes any diagnoses that were discussed at your visit. 1. 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 Lab None recorded. Referral None recorded. Procedures None recorded. Surgeries None recorded. Imaging MAMMO, Diagnostic, Digital, Bilateral 09/20/2019 [facility] ([facility]) Current Medications Your medical record indicates you are on the following medicine. If this list is not consistentwith the medications you are currently taking, or if you are taki ng additional uhri-cdj-hcqqpto medicines, pleaseinform your provider. Name Prescribed Date Start Date Benadryl Medications Administered None recorded. Vitals Height Weight BMI Blood Pressure Pulse O2 Saturation Body Surface Area Blood Pressure Cuff Size Pain Scale 5 ft 1 in 210.2 lbs 39.7 kg/m2 114/76 mm[Hg] 94 bpm 97% 2.03 m adult 0 Results Lab Results None recorded. Allergies Please review your allergy list for accuracy. Contact your provider if this list needs to be updated. Code Code System Name Reaction Severity Onset RxNorm Lamictal Vagisil Anti-itch Nausea Problems Name Status Onset Date Source Disorder of Thyroid Gland Active 09/20/2019 Procedures Date Name Performed by Operative Procedure on Knee Information not available Percutaneous Extraction of Kidney Stone with Fragmentation Procedure Information not available Bilateral Tubal Ligation Information not available 09/20/2019 MAMMO, Diagnostic, Digital, Bilateral Ad [facility] [address] [place] [address] (Work Place) Vaccine List Here is a copy of your most up-to-date vaccination list. None recorded. Tobacco Smoking Status Tobacco Smoking Status Heavy Tobacco Smoker (1 PPD) Past Encounters 09/20/2019 Galactorrhea Not Associated with Childbirth Matilde Chavarria, DO: [address] [place] [address], Ph. [phone]
== END 2020-01-22 20:22 | disposition home or self-care (01) ==
LOC: EDUNIT# 19:32 → ER FS 19:33
DX: G43.909 Migraine, unspecified, not intractable, without status migrainosus (principal); J01.10 Acute frontal sinusitis, unspecified; J01.00 Acute maxillary sinusitis, unspecified; Z88.8 Allergy status to other drugs, medicaments and biological substances; Z79.82 Long term (current) use of aspirin
CPT/HCPCS: 84703; 99284

== ENCOUNTER 2020-05-03 19:36 | Emergency (ER) | payer OTHER ==
[~2020-05-03] VITALS: Ht 154.9 cm; Wt 96.7 kg
[~2020-05-03 19:36] MED LIST changes: +AMOX-358 PO
[2020-05-03 19:39] VITALS: BP 163/98
--- NOTE | 2020-05-03 19:52 | ED Headache ---
General Chief Complaint: Head/Cervical Problems Stated Complaint: HEADACHE Source: patient Exam Limitations: no limitations History of Present Illness Date Seen by Provider: May 03, 2020 Time Seen by Provider: 19:45 Initial Comments 34-year-old female presents with complaint of headache that began today. Associated photophobia and nausea, typical of her recurrent migraine headaches which she has often. Patient has taken an Aleve as well as Fioricet without any relief. Patient states she hit her head accidentally on a car door yesterday and doesn't know if that precipitated this headache. She herself on the left side of her face, no bruising or swelling associated. No recent illness, fever or chills. Allergies and Home Medications Allergies Coded Allergies: lamotrigine (Verified Allergy, Mild, 12/09/09) Home Medications Amoxicillin/Potassium Clav 1 Each Tablet, 1 EACH PO BID Prescribed by: CARA CASEY on 01/22/202011 Butalbital/Aspirin/Caffeine 1 Each Capsule, 1 EACH PO QID Prescribed by: RIGO CASTRO on 06/22/191748 Hydrocodone Bit/Acetaminophen 1 Tab Tab, 1 EACH PO Q4-6HR PRN for PAIN-MODERATE Prescribed by: RIGO CASTRO on 04/01/192221 Ondansetron 4 Mg Tab.rapdis, 4 MG PO TID Prescribed by: RIGO CASTRO on 06/22/191748 Patient Home Medication List Home Medication List Reviewed: Yes Review of Systems Review of Systems Constitutional: no symptoms reported; No dizziness, No fever; malaise; No weakness Eyes: Denies Blurred Vision, Denies Pain; Photophobia Ears, Nose, Mouth, Throat: no symptoms reported Respiratory: No cough, No short of breath Cardiovascular: No chest pain, No edema, No palpitations Gastrointestinal: No abdominal pain, No loss of appetite; nausea; No vomiting Musculoskeletal: No back pain, No muscle pain, No neck pain Psychiatric/Neurological: Headache; Denies Numbness, Denies Paresthesia, Denies Pre-Existing Deficit, Denies Seizure Past Vdkcrnq-Dvulnh-Hvwxjo Hx Past Med/Social Hx: Reviewed Nursing Past Med/Soc Hx Patient Social History 2nd Hand Smoke Exposure: No Recent Foreign Travel: No Contact w/Someone Who Travel: No Recent Hopitalizations: No Immunizations Up To Date Tetanus Booster (TDap): Less than 5yrs Seasonal Allergies Seasonal Allergies: No Past Medical History Surgeries: Yes (Cyst removal from knee) Respiratory: No Cardiac: No Neurological: Yes Headaches /Migraines Reproductive Disorders: No Sexually Transmitted Disease: No Genitourinary: No Gastrointestinal: No Musculoskeletal: No Endocrine: No HEENT: No Cancer: No Psychosocial: No Integumentary: No Blood Disorders: No Physical Exam Vital Signs Vital Signs - First Documented 05/03/20 19:39 Temp 36.5 Pulse 84 Resp 18 B/P (MAP) 163/98 (119) Pulse Ox 97 O2 Delivery Room Air Capillary Refill : Height, Weight, BMI Height: 5'1.00" Weight: 200lbs. oz. 90.011907rw; 34.00 BMI Method:Stated General Appearance: WD/WN, no apparent distress HEENT: PERRL/EOMI, normal ENT inspection Neck: non-tender, supple Psychiatric: alert, oriented x 3 Crainal Nerves: normal hearing, normal speech, PERRL Coordination/Gait: normal finger to nose, normal gait Motor/Sensory: no motor deficit, no sensory deficit, no pronator drift Skin: normal color, warm/dry Progress/Results/Core Measures Results/Orders My Orders Orders - ZIA CONCEPCION DO Ed Iv/Invasive Line Start (05/03/20 19:47) Ns Iv 1000 Ml (Sodium Chloride 0.9%) (05/03/20 20:00) Ketorolac Injection (Toradol Injection) (05/03/20 20:00) Metoclopramide Injection (Reglan Injecti (05/03/20 20:00) Diphenhydramine Injection (Benadryl Inje (05/03/20 20:00) Medications Given in ED Current Medications Medications Dose Ordered Sig/Everardo Route Start Time Stop Time Status Last Admin Dose Admin Diphenhydramine HCl 25 mg ONCE ONCE IVP 05/03/20 20:00 05/03/20 20:01 DC 05/03/20 20:02 25 MG Ketorolac Tromethamine 30 mg ONCE ONCE IVP 05/03/20 20:00 05/03/20 20:01 DC 05/03/20 20:03 30 MG Metoclopramide HCl 5 mg ONCE ONCE IV 05/03/20 20:00 05/03/20 20:01 DC 05/03/20 20:05 5 MG Vital Signs/I&O 05/03/20 19:39 Temp 36.5 Pulse 84 Resp 18 B/P (MAP) 163/98 (119) Pulse Ox 97 O2 Delivery Room Air Progress Progress Note : Time: 20:12 Progress Note Patient states headache 50 percent improved with medication. We'll give 5 mg Reglan IV and plans for DC home. Departure Impression Primary Impression: Migraine Qualified Codes: G43.009 - Migraine without aura, not intractable, without status migrainosus Disposition: HOME, SELF-CARE Condition: Improved Departure-Patient Inst. Referrals: NO,LOCAL PHYSICIAN (PCP/Family) Primary Care Physician Patient Instructions: Migraine Headache (DC) Add. Discharge Instructions: See your Primary Care Physician in 3 to 4 days if not improving, go to the nearest ER if your headache is unrelieved or worse. All discharge instructions reviewed with patient and/or family. Voiced understanding. ZIA CONCEPCION DO May 03, 2020 19:52
[2020-05-03] MEDS ORDERED: METOCLOPRAMIDE INJ 10 MG/2 ML (REGLAN) IV ONE ×2 (20:00→20:15)
[2020-05-03] MEDS ORDERED: diphenhydrAMINE 50 MG/ML INJ (BENADRYL) IVP ONE (20:00)
[2020-05-03] MEDS ORDERED: KETOROLAC 30 MG/ML VIAL IVP ONE (20:00)
[2020-05-03] MEDS ORDERED: NS IV 1000 ML 1,000 ML IV SCH (20:00)
== END 2020-05-03 20:25 | disposition home or self-care (01) ==
LOC: EDUNIT# 19:36 → ER FS 19:39
DX: G43.909 Migraine, unspecified, not intractable, without status migrainosus (principal); Z88.8 Allergy status to other drugs, medicaments and biological substances; Z79.82 Long term (current) use of aspirin; W22.8XXA Striking against or struck by other objects, initial encounter

== ENCOUNTER 2020-05-06 12:46 | Emergency (ER) | payer OTHER ==
[~2020-05-06] VITALS: Ht 154.9 cm; Wt 94.8 kg
[2020-05-06] MEDS ORDERED: fentaNYL INJECTION 100 MCG/2 ML AMP IVP PRN (13:45)
[2020-05-06] MEDS ORDERED: NS IV 1000 ML 1,000 ML IV SCH (13:45)
[2020-05-06] MEDS ORDERED: ONDANSETRON 4 MG/2 ML (SDV) Z0FRAN IVP ONE (13:45)
[2020-05-06] MEDS ORDERED: diphenhydrAMINE 50 MG/ML INJ (BENADRYL) IVP ONE (13:45)
--- NOTE | 2020-05-06 14:03 | ED General ---
General Chief Complaint: Head/Cervical Problems Stated Complaint: HEADACHE Nursing Triage Note: Patient reports she has chronic headaches/migraines, states her current migraine started this morning. States she took her prescribed medication this morning for migraines and it is not helping. Nursing Sepsis Screen: No Definite Risk Source of Information: Patient History of Present Illness Date Seen by Provider: May 06, 2020 Time Seen by Provider: 13:00 Initial Comments Patient is a 34-year-old female with history of migraine headaches presents with typical left sided retro-orbital headache beginning early this morning. Headache was gradual onset and is not worst headache of the patient's life. Headache is dull throbbing nonmigratory non-radiating. It is associated with light sensitivity and nausea without vomiting. No neck pain stiffness, rash, extremity weakness or loss of sensation. No other acute symptoms or complaints. Patient denies triggering or aggravating events. Timing/Duration: 4-6 Hours Severity: Moderate Modifying Factors: improves with Movement Associated Systoms: Headaches, Nausea/Vomiting Allergies and Home Medications Allergies Coded Allergies: lamotrigine (Verified Allergy, Mild, 12/09/09) Home Medications Amoxicillin/Potassium Clav 1 Each Tablet, 1 EACH PO BID Prescribed by: CARA CASEY on 01/22/202011 Butalbital/Aspirin/Caffeine 1 Each Capsule, 1 EACH PO QID Prescribed by: RIGO CASTRO on 06/22/191748 Hydrocodone Bit/Acetaminophen 1 Tab Tab, 1 EACH PO Q4-6HR PRN for PAIN-MODERATE Prescribed by: RIGO CASTRO on 04/01/192221 Ondansetron 4 Mg Tab.rapdis, 4 MG PO TID Prescribed by: RIGO CASTRO on 06/22/19 1749 Patient Home Medication List Home Medication List Reviewed: Yes Review of Systems Review of Systems Constitutional: see HPI EENTM: see HPI Respiratory: see HPI Cardiovascular: see HPI Gastrointestinal: see HPI Genitourinary: see HPI Musculoskeletal: see HPI Skin: see HPI Psychiatric/Neurological: See HPI Hematologic/Lymphatic: See HPI Immunological/Allergic: see HPI All Other Systems Reviewed Negative Unless Noted: Yes Past Qjzopzs-Vnfgbx-Svwmao Hx Past Med/Social Hx: Reviewed Nursing Past Med/Soc Hx Patient Social History Alcohol Use: Denies Use Recreational Drug Use: No Smoking Status: Never a Smoker 2nd Hand Smoke Exposure: No Recent Foreign Travel: No Contact w/Someone Who Travel: No Recent Infectious Disease Expo: No Recent Hopitalizations: No Physical Abuse: No Sexual Abuse: No Mistreated: No Fear: No Immunizations Up To Date Tetanus Booster (TDap): Less than 5yrs Seasonal Allergies Seasonal Allergies: No Past Medical History Surgeries: Yes (Cyst removal from knee) Respiratory: No Cardiac: No Neurological: Yes Headaches /Migraines Last Menstrual Period: Mar 24, 2020 Reproductive Disorders: No Sexually Transmitted Disease: No Genitourinary: No Gastrointestinal: No Musculoskeletal: No Endocrine: No HEENT: No Cancer: No Psychosocial: No Integumentary: No Blood Disorders: No Physical Exam Vital Signs Vital Signs - First Documented 05/06/20 12:49 Temp 36.5 Pulse 84 Resp 16 B/P (MAP) 149/90 (109) Pulse Ox 98 O2 Delivery Room Air Capillary Refill : Less Than 3 Seconds Height, Weight, BMI Height: 5'1.00" Weight: 200lbs. oz. 90.762030uu; 39.00 BMI Method:Stated General Appearance: No Apparent Distress, WD/WN, Anxious Eyes: Bilateral Eye Normal Inspection, Bilateral Eye PERRL, Bilateral Eye EOMI HEENT: PERRL/EOMI, Pharynx Normal, Moist Mucous Membranes Neck: Full Range of Motion, Non Tender, Supple Respiratory: Lungs Clear, Normal Breath Sounds Cardiovascular: Regular Rate, Rhythm Gastrointestinal: Normal Bowel Sounds, Non Tender Back: Normal Inspection, No CVA Tenderness Extremity: Normal Capillary Refill, Normal Inspection Neurologic/Psychiatric: Alert, Oriented x3, No Motor/Sensory Deficits Skin: Normal Color Focused Exam Sepsis Stage: Ruled Out Progress/Results/Core Measures Suspected Sepsis Recent Fever Within 48 Hours: No Infection Criteria Present: None New/Unexplained Altered Menta: No Sepsis Screen: No Definite Risk SIRS Temperature: Pulse: 84 Respiratory Rate: 16 Blood Pressure 149 /90 Mean: 109 Results/Orders My Orders Orders - TAE GRAY Iv 1000 Ml (Sodium Chloride 0.9%) (05/06/20 13:45) Ondansetron Injection (Zofran Injectio (05/06/20 13:45) Fentanyl Injection (Sublimaze Injection (05/06/20 13:45) Diphenhydramine Injection (Benadryl Inje (05/06/20 13:45) Prochlorperazine Injection (Compazine In (05/06/20 14:45) Medications Given in ED Current Medications Medications Dose Ordered Sig/Everardo Route Start Time Stop Time Status Last Admin Dose Admin Diphenhydramine HCl 50 mg ONCE ONCE IVP 05/06/20 13:45 05/06/20 13:46 DC 05/06/20 13:55 50 MG Fentanyl Citrate 50 mcg Q1H PRN IVP 05/06/20 13:45 05/06/20 13:54 50 MCG Ondansetron HCl 4 mg ONCE ONCE IVP 05/06/20 13:45 05/06/20 13:46 DC 05/06/20 13:54 4 MG Prochlorperazine Edisylate 10 mg ONCE ONCE IV 05/06/20 14:45 05/06/20 14:46 DC 05/06/20 14:48 10 MG Vital Signs/I&O 05/06/20 12:49 Temp 36.5 Pulse 84 Resp 16 B/P (MAP) 149/90 (109) Pulse Ox 98 O2 Delivery Room Air Capillary Refill : Less Than 3 Seconds Blood Pressure Mean: 109 Departure Communication (Admissions) Typical migraine deadache and symptoms improved with treatment migraine headache without neurologic findings. Symptoms improved treat with treatment. Will discharge home with continued supportive care as needed. ECP follow-up recommended. Impression Primary Impression: Migraine Disposition: 01 HOME, SELF-CARE Condition: Stable Departure-Patient Inst. Decision time for Depature: 15:01 Referrals: TEA KOTHARI (PCP) Primary Care Physician NO,LOCAL PHYSICIAN (Family) Primary Care Physician Patient Instructions: Migraine Headache (DC) Add. Discharge Instructions: You were evaluated in the emergency department for headache. Please increase fluids and go home and rest. Take Excedrin Migraine for headache and Compazine as needed for additional relief. Follow-up with your PCP in 2-3 days if symptoms persist. Return to the ED if new or worsening symptoms. All discharge instructions reviewed with patient and/or family. Voiced understanding. Scripts Prochlorperazine Maleate (Compazine) 10 Mg Tablet 10 MG PO Q8H, #10 TAB Prov: TAE GRAY DO 05/06/20 TAE GRAY DO May 06, 2020 14:03
[2020-05-06] MEDS ORDERED: PROCHLORPERAZINE 10 MG/2ML INJ (COMPAZINE) IV ONE (14:45)
[2020-05-06] MEDS ORDERED: PROC-1 PO (15:00)
--- NOTE | 2020-05-06 15:07 | NUR ---
Patient states she is in a hurry to make it to her daughter's tumbling class.
[2020-05-06 15:10] VITALS: BP 0/0
--- NOTE | 2020-05-06 15:10 | NUR ---
1505: Patient to nurse's desk stating her headache is better and she is ready to leave. Informed patient that the provider would be notified. 1507: Patient ambulatory out of ER stating she is leaving, informed patient that without discharge from provider she will be leaving against medical advice. Patient vocalized understanding, IV removed, patient ambulatory out of the ED.
== END 2020-05-06 15:10 | disposition left against medical advice (07) ==
LOC: EDUNIT# 12:46 → ER FS 12:48
DX: G43.909 Migraine, unspecified, not intractable, without status migrainosus (principal); F41.9 Anxiety disorder, unspecified; Z88.8 Allergy status to other drugs, medicaments and biological substances

== ENCOUNTER → 2020-07-16 | Outpatient (CLI) | payer OTHER ==
[~2020-07-16] MED LIST changes: +PROC-1 PO
[2020-07-16 11:43] LABS: WHITE BLOOD COUNT 9.9 10^3/uL (4.3-11.0)
[2020-07-16 11:44] LABS: BASOPHILS % (AUTO) 0 % (0-10); EOSINOPHILS % (AUTO) 0 % (0-10); HEMATOCRIT 43 % (35-52); HEMOGLOBIN 13.7 G/DL (11.5-16.0); LYMPHOCYTES % (AUTO) 31 % (12-44); MEAN CORPUSCULAR HEMOGLOBIN 26 PG (25-34); MEAN CORPUSCULAR HGB CONC 32 G/DL (32-36); MEAN CORPUSCULAR VOLUME 80 FL (80-99); MEAN PLATELET VOLUME 8.7 FL (7.4-10.4); MONOCYTES # (AUTO) 0.7 X 10^3 (0.0-1.0); MONOCYTES % (AUTO) 7 % (0-12); NEUTROPHILS # (AUTO) 6.2 X 10^3 (1.8-7.8); NEUTROPHILS % (AUTO) 62 % (42-75); PLATELET COUNT 351 10^3/uL (130-400)
[2020-07-16 11:47] LABS: ALANINE AMINOTRANSFERASE 22 U/L (0-55); ALKALINE PHOSPHATASE 106 U/L (40-136); BILIRUBIN,TOTAL 0.3 MG/DL (0.1-1.0); BUN/CREATININE RATIO 15; CALCIUM 9.6 MG/DL (8.5-10.1); CARBON DIOXIDE 24 MMOL/L (21-32); CHLORIDE 103 MMOL/L (98-107); GFR ESTIMATED > 60; GLUCOSE 94 MG/DL (70-105); POTASSIUM 4.7 MMOL/L (3.6-5.0); SODIUM 136 MMOL/L (135-145); TOTAL PROTEIN 7.4 GM/DL (6.4-8.2)
[2020-07-16 12:00] LABS: LIPASE 21 U/L (8-78)
--- NOTE | 2020-07-16 14:13 | Diagnostic Imaging Report ---
INDICATION: Abdominal pain. COMPARISON: 12/09/2009 FINDINGS: Supine and upright views the abdomen demonstrate nonobstructive small bowel gas pattern. Mild amount of air and stool are seen scattered throughout the colon. No abnormal air-fluid levels or large collection of free intraperitoneal air is seen. No abnormal extraosseous calcifications or radiopaque foreign bodies are identified. Bony structures are age-appropriate. IMPRESSION: 1. Nonobstructive small bowel gas pattern. Dictated by: Dictated on workstation # [id number]
== END ==
LOC: LAB FS 10:58
PROVIDERS: ATTEND Nurse Practitioner Family
DX: R10.84 Generalized abdominal pain (principal)
CPT/HCPCS: 36415; 74019; 80053; 83690; 85025

== ENCOUNTER 2020-09-13 19:45 | Emergency (ER) | payer OTHER ==
[~2020-09-13] VITALS: Ht 154.9 cm; Wt 97.5 kg
--- NOTE | 2020-09-13 20:37 | ED Lower Extremity ---
General Stated Complaint: R ANKLE INJ Source: patient Exam Limitations: no limitations History of Present Illness Date Seen by Provider: Sep 13, 2020 Time Seen by Provider: 20:36 Initial Comments To ER with reports of a left lateral ankle pain and swelling after she twisted it while rollerskating this evening. Onset: just prior to arrival Severity: moderate Pain/Injury Location: left ankle Method of Injury: twisted Modifying Factors: Worse With Movement Allergies and Home Medications Allergies Coded Allergies: lamotrigine (Verified Allergy, Mild, 12/09/09) Home Medications Amoxicillin/Potassium Clav 1 Each Tablet, 1 EACH PO BID Prescribed by: CARA CASEY on 01/22/202011 Butalbital/Aspirin/Caffeine 1 Each Capsule, 1 EACH PO QID Prescribed by: RIGO CASTRO on 06/22/19 174 Hydrocodone Bit/Acetaminophen 1 Tab Tab, 1 EACH PO Q4-6HR PRN for PAIN-MODERATE Prescribed by: RIGO CASTRO on 04/01/19 222 Ondansetron 4 Mg Tab.rapdis, 4 MG PO TID Prescribed by: RIGO CASTRO on 06/22/19 174 Prochlorperazine Maleate 10 Mg Tablet, 10 MG PO Q8H Prescribed by: TAE GRAY on 05/06/20 1500 Patient Home Medication List Home Medication List Reviewed: Yes Review of Systems Constitutional: see HPI EENTM: see HPI Respiratory: no symptoms reported Cardiovascular: no symptoms reported Genitourinary: no symptoms reported Musculoskeletal: see HPI Skin: no symptoms reported Psychiatric/Neurological: No Symptoms Reported Past Hxwglvw-Mofhxl-Haiwhe Hx Patient Social History 2nd Hand Smoke Exposure: No Recent Hopitalizations: No Immunizations Up To Date Tetanus Booster (TDap): Less than 5yrs Seasonal Allergies Seasonal Allergies: No Past Medical History Surgeries: Yes (Cyst removal from knee) Respiratory: No Cardiac: No Neurological: Yes Headaches /Migraines Reproductive Disorders: No Sexually Transmitted Disease: No Genitourinary: No Gastrointestinal: No Musculoskeletal: No Endocrine: No HEENT: No Cancer: No Psychosocial: No Integumentary: No Blood Disorders: No Physical Exam Vital Signs Capillary Refill : Height, Weight, BMI Height: 5'1.00" Weight: 200lbs. oz. 90.304997ef; 39.00 BMI Method:Stated General Appearance: WD/WN, no apparent distress HEENT: PERRL/EOMI, normal ENT inspection Neck: non-tender, full range of motion Respiratory: no respiratory distress, no accessory muscle use Hips: bilateral hip non-tender, bilateral hip normal inspection, bilateral hip normal range of motion Legs: bilateral leg non-tender, bilateral leg normal inspection, bilateral leg normal range of motion Knees: bilateral knee non-tender, bilateral knee normal inspection, bilateral knee normal range of motion Ankles: right ankle pain, right ankle soft tissue tenderness, right ankle swelling, right ankle other (Dorsalis pedis pulse. No deformity to the foot. No deformity or swelling over the medial malleolus.) Feet: bilateral foot non-tender, bilateral foot normal inspection, bilateral foot normal range of motion Neurologic/Psychiatric: alert, normal mood/affect, oriented x 3 Skin: normal color, warm/dry Progress/Results/Core Measures Results/Orders My Orders Orders - DEREK SMITH APRN Ankle, Right, 3 Views (09/13/20 20:24) Hydrocodone/Apap 5/325 Tablet (Lortab 5 (09/13/20 20:45) Rx-Oxycodone/Apap 5-325 Mg (Rx-Percocet (09/13/20 21:30) Medications Given in ED Current Medications Medications Dose Ordered Sig/Everardo Route Start Time Stop Time Status Last Admin Dose Admin Oxycodone/ Acetaminophen 1 ea Q4H PRN PO 09/13/20 21:30 09/13/20 21:33 1 EA Diagnostic Imaging Diagonstic Imaging: Xray Comments NAME: JUSTINA CARRASCO [facility] REC#: [id number] PT STATUS: REG ER : 1985 PHYSICIAN: DEREK SMITH APRN ADMIT DATE: 09/13/20/ER Draft Date of Exam:09/13/20 ANKLE, RIGHT, 3 VIEWS INDICATION: Right ankle pain. EXAMINATION: AP, oblique and lateral views of the right ankle were obtained. FINDINGS: Small ossific fragments are seen adjacent to medial and lateral malleoli. These may represent avulsion fractures of indeterminate age. Otherwise, no acute ankle abnormality is seen. IMPRESSION: Ossific fragments adjacent to medial and lateral malleoli are compatible with avulsion fractures. These are of indeterminate age, however, there is lateral ankle swelling suggesting possible acute nature. Dictated on workstation # [id number] Dict: 09/13/202109 Trans: 09/13/202114 [facility] [id number] Interpreted by: STEVEN ALVAREZ MD Electronically signed by: Departure Communication (Admissions) Placed in a posterior short leg splint and a stirrup splint using 3 inch Ortho- Glass. Impression Primary Impression: Ankle fracture Disposition: HOME, SELF-CARE Condition: Stable Departure-Patient Inst. Decision time for Depature: 22:05 Referrals: TEA KOTHARI (PCP) Primary Care Physician FAUSTINO VELA MD, MICHAEL P MD Patient Instructions: Splint Care Add. Discharge Instructions: You have an avulsion fracture of the lateral and medial malleolus. This is treated essentially like a sprain. You need to follow-up with orthopedics. Call Tuesday to make an appointment to be seen. Do not put weight on it until the pain is much improved. Use the crutches in the meantime. Pain medication as directed. Keep the foot elevated. Scripts Oxycodone HCl/Acetaminophen (Endocet 5-325 Tablet) 1 Each Tablet 1 EACH PO Q4H PRN for PAIN-MODERATE MDD 6 for 7 Days, #10 TAB Prov: DEREK SMITH APRN 09/13/20 DEREK SMITH APRN Sep 13, 2020 20:37
[2020-09-13] MEDS ORDERED: HYDROcodone/APAP 5 MG/325 MG (LORTAB) TAB PO ONE (20:45)
--- NOTE | 2020-09-13 21:15 | Diagnostic Imaging Report ---
INDICATION: Right ankle pain. EXAMINATION: AP, oblique and lateral views of the right ankle were obtained. FINDINGS: Small ossific fragments are seen adjacent to medial and lateral malleoli. These may represent avulsion fractures of indeterminate age. Otherwise, no acute ankle abnormality is seen. IMPRESSION: Ossific fragments adjacent to medial and lateral malleoli are compatible with avulsion fractures. These are of indeterminate age, however, there is lateral ankle swelling suggesting possible acute nature. Dictated by: Dictated on workstation # [id number]
[2020-09-13] MEDS ORDERED: RX-OXYCODONE/APAP 5-325 MG #4 TAB PK PO PRN (21:30)
[2020-09-13] MEDS ORDERED: OXYC-188 PO (22:07)
[2020-09-13 22:15] VITALS: BP 140/78
== END 2020-09-13 22:15 | disposition home or self-care (01) ==
LOC: EDUNIT# 19:45 → ER 19:46
DX: S82.51XA Displaced fracture of medial malleolus of right tibia, initial encounter for closed fracture (principal); S82.61XA Displaced fracture of lateral malleolus of right fibula, initial encounter for closed fracture; Z88.8 Allergy status to other drugs, medicaments and biological substances; Z79.82 Long term (current) use of aspirin; X50.1XXA Overexertion from prolonged static or awkward postures, initial encounter; Y93.51 Activity, roller skating (inline) and skateboarding
CPT/HCPCS: 29515; 73610

== ENCOUNTER 2021-02-22 11:18 | Emergency (ER) | payer OTHER ==
[~2021-02-22] VITALS: Ht 154.9 cm; Wt 92.1 kg
[~2021-02-22 11:18] MED LIST changes: +OXYC-188 PO
[2021-02-22 11:34] VITALS: BP 125/82
--- NOTE | 2021-02-22 11:39 | ED Headache ---
General Chief Complaint: Head/Cervical Problems Stated Complaint: HEADACHE History of Present Illness Date Seen by Provider: Feb 22, 2021 Time Seen by Provider: 11:34 Initial Comments 35-year-old female presents with a headache. She reports that she has a history of headaches along with some migraines. She reports that started yesterday she tried some Aleve last night and Tylenol this morning with no relief. Patient reports that she has been under a lot of family stress recently. That the pain started somewhat inner back of her head neck and is up over the front of her head above her eyes. She denies any fevers or chills. This is similar to headache she has had in the past. Allergies and Home Medications Allergies Coded Allergies: lamotrigine (Verified Allergy, Mild, 12/09/09) Home Medications Amoxicillin/Potassium Clav 1 Each Tablet, 1 EACH PO BID Prescribed by: CARA CASEY on 01/22/202011 Butalbital/Aspirin/Caffeine 1 Each Capsule, 1 EACH PO QID Prescribed by: RIGO CASTRO on 06/22/19 174 Hydrocodone Bit/Acetaminophen 1 Tab Tab, 1 EACH PO Q4-6HR PRN for PAIN-MODERATE Prescribed by: RIGO CASTRO on 04/01/19 222 Ondansetron 4 Mg Tab.rapdis, 4 MG PO TID Prescribed by: RIGO CASTRO on 06/22/19 174 Oxycodone HCl/Acetaminophen 1 Each Tablet, 1 EACH PO Q4H PRN for PAIN-MODERATE Prescribed by: DEREK SMITH on 09/13/20 220 Prochlorperazine Maleate 10 Mg Tablet, 10 MG PO Q8H Prescribed by: TAE GRAY on 05/06/20 1500 Patient Home Medication List Home Medication List Reviewed: Yes Review of Systems Review of Systems Constitutional: No chills, No fever Eyes: Photophobia Respiratory: No cough, No short of breath Cardiovascular: No chest pain, No palpitations Gastrointestinal: No abdominal pain; nausea; No vomiting Musculoskeletal: see HPI Skin: no symptoms reported Psychiatric/Neurological: Headache Past Lhpaorq-Rahmtm-Qpnjze Hx Immunizations Up To Date Tetanus Booster (TDap): Less than 5yrs Seasonal Allergies Seasonal Allergies: No Past Medical History Surgeries: Yes (Cyst removal from knee) Respiratory: No Cardiac: No Neurological: Yes Headaches /Migraines Reproductive Disorders: No Sexually Transmitted Disease: No Genitourinary: No Gastrointestinal: No Musculoskeletal: No Endocrine: No HEENT: No Cancer: No Psychosocial: No Integumentary: No Blood Disorders: No Physical Exam Vital Signs Capillary Refill : Height, Weight, BMI Height: 5'1.00" Weight: 200lbs. oz. 90.667050mh; 40.00 BMI Method:Stated General Appearance: no apparent distress, obese HEENT: PERRL/EOMI Neck: full range of motion, supple, tender lateral Cardiovascular: regular rate, rhythm, no edema Respiratory: lungs clear, normal breath sounds Gastrointestinal: non tender, soft Extremities: non-tender, normal inspection Psychiatric: alert, oriented x 3, depressed affect Crainal Nerves: PERRL Coordination/Gait: normal gait Motor/Sensory: no motor deficit, no sensory deficit Skin: normal color, warm/dry Progress/Results/Core Measures Results/Orders My Orders Orders - ESDRAS AGUIAR DO Ketorolac Injection (Toradol Injection) (02/22/21 11:43) Orphenadrine Inj (Ed Only) (Norflex Inje (02/22/21 11:43) Metoclopramide Injection (Reglan Injecti (02/22/21 11:43) Diphenhydramine Injection (Benadryl Inje (02/22/21 11:43) Departure Impression Primary Impression: Tension type headache Qualified Codes: G44.209 - Tension-type headache, unspecified, not intractable Disposition: 01 HOME, SELF-CARE Condition: Stable Departure-Patient Inst. Referrals: [facility] (PCP/Family) Primary Care Physician Patient Instructions: Headache, Adult (DC) Add. Discharge Instructions: Follow-up with your primary care provider next week for recheck if your headaches All discharge instructions reviewed with patient and/or family. Voiced understanding. ESDRAS AGUIAR DO Feb 22, 2021 11:39
[2021-02-22] MEDS ORDERED: KETOROLAC 60 MG/2 ML VIAL IM STA (11:43)
[2021-02-22] MEDS ORDERED: METOCLOPRAMIDE INJ 10 MG/2 ML (REGLAN) IM/IV STA (11:43)
[2021-02-22] MEDS ORDERED: diphenhydrAMINE 50 MG/ML INJ (BENADRYL) IM STA (11:43)
[2021-02-22] MEDS ORDERED: ORPHENADRINE 60 MG/2 ML (NORFLEX) AMP (ED ONLY) IM STA (11:43)
== END 2021-02-22 12:11 | disposition home or self-care (01) ==
LOC: EDUNIT# 11:18 → ER FS 11:20
DX: G44.209 Tension-type headache, unspecified, not intractable (principal); E66.9 Obesity, unspecified; Z68.41 Body mass index [BMI] 40.0-44.9, adult
CPT/HCPCS: 99284

== ENCOUNTER → 2021-05-12 | Outpatient (CLI) | payer OTHER ==
--- NOTE | 2021-05-12 09:17 | Diagnostic Imaging Report ---
INDICATION: History of cyst removal 3 years ago with knee pain since then, recently increasing in severity. TECHNIQUE: 3 views of the left knee CORRELATION STUDY: None FINDINGS: The joint spaces are maintained. The articular surfaces are smooth and preserved. There is no acute bony abnormality. Soft tissues are unremarkable. IMPRESSION: 1. Negative for acute bony abnormality of the knee. Dictated by: Dictated on workstation # [id number]
== END ==
LOC: LAB FS 08:51
PROVIDERS: ATTEND Nurse Practitioner
DX: M25.562 Pain in left knee (principal)
CPT/HCPCS: 73562

== ENCOUNTER 2021-10-01 15:22 | Emergency (ER) | payer OTHER ==
--- NOTE | 2021-10-01 15:32 | ED Psychosocial ---
General Chief Complaint: Psych/Social Disorder Stated Complaint: SUCIDIAL IDEATION History of Present Illness Date Seen by Provider: Oct 01, 2021 Time Seen by Provider: 15:26 Initial Comments 36 yr F with Psych disorder, was sent hre by her PCP for suicidal ideation. ER nurse called PCP and also Psych clinic to verify and obtain more information since pt is stating she is NOT suicidal today and she has children in the car. Pt states that she is here only because her PCP told her to come here. Pt is not currently suicidal or homicidal and has no physical symptoms. She does not want to be seen by a physician. Allergies and Home Medications Allergies Coded Allergies: lamotrigine (Verified Allergy, Mild, 12/09/09) Patient Home Medication List Home Medication List Reviewed: Yes Amoxicillin/Potassium Clav (Augmentin 875-125 Tablet) 1 Each Tablet, 1 EACH PO BID Prescribed by: CARA CASEY on 01/22/202011 Aripiprazole (Abilify Discmelt) 10 Mg Tab.rapdis, (Reported) Entered as Reported by: REBECCA MARLOW on 12/09/09 1323 Butalbital/Aspirin/Caffeine (Fiorinal 50-325-40 mg Capsule) 1 Each Capsule, 1 EACH PO QID Prescribed by: RIGO CASTRO on 06/22/19 1749 Fluoxetine Hcl (Fluoxetine Hcl) 20 Mg Capsule, (Reported) Entered as Reported by: REBECCA MARLOW on 12/09/09 1321 Hydrocodone Bit/Acetaminophen (Lortab 5 Mg Tablet) 1 Tab Tab, 1 EACH PO Q4-6HR PRN for PAIN-MODERATE Prescribed by: RIGO CASTRO on 04/01/19 2222 Ondansetron (Ondansetron Odt) 4 Mg Tab.rapdis, 4 MG PO TID Prescribed by: RIGO CASTRO on 06/22/19 174 Oxycodone HCl/Acetaminophen (Endocet 5-325 Tablet) 1 Each Tablet, 1 EACH PO Q4H PRN for PAIN-MODERATE Prescribed by: DEREK SMITH on 09/13/20 220 Prochlorperazine Maleate (Compazine) 10 Mg Tablet, 10 MG PO Q8H Prescribed by: TAE GRAY on 05/06/20 1500 Topiramate (Topamax) 100 Mg Tablet, (Reported) Entered as Reported by: REBECCA MARLOW on 12/09/09 1321 Review of Systems Constitutional: no symptoms reported All Other Systems Reviewed Negative Unless Noted: Yes Past Ndnfluj-Wlyxhg-Flpjjz Hx Immunizations Up To Date Tetanus Booster (TDap): Less than 5yrs Seasonal Allergies Seasonal Allergies: No Past Medical History Surgeries: Yes (Cyst removal from knee) Respiratory: No Cardiac: No Neurological: Yes Headaches /Migraines Reproductive Disorders: No Sexually Transmitted Disease: No Genitourinary: No Gastrointestinal: No Musculoskeletal: No Endocrine: No HEENT: No Cancer: No Psychosocial: No Integumentary: No Blood Disorders: No Physical Exam Capillary Refill : Height, Weight, BMI Height: 5'1.00" Weight: 200lbs. oz. 90.853369gm; 38.00 BMI Method:Stated General Appearance: no apparent distress Neurologic/Psychiatric: alert Progress/Results/Core Measures Progress Progress Note : Progress Note Pt is not suicidal or homicidal an she wants to leave and does not understand w hy she was told to come to the ER. She saw her Psychiatrist on 09/29 and 09/30, and was sent home with a plan with a follow up appointment on 10/06. ER nurse called PCP and Psych clinic to verify all this. Pt has her children in the car and does not want to see the physician (me) at this time. Departure Departure-Patient Inst. Referrals: KOJO VICK MD (PCP/Family) Primary Care Physician Patient Instructions: Psychotherapy Add. Discharge Instructions: F/u on 10/06 with psychiatrist as planned. Advised pt to return to ER if she feels suicidal again. F/u with PCP as well, as instructed by her PCP. All discharge instructions reviewed with patient and/or family. Voiced understanding. ELBA RINCON MD Oct 01, 2021 15:32
== END 2021-10-01 15:45 | disposition left against medical advice (07) ==
LOC: EDUNIT# 15:22 → ER FS 15:23
DX: R45.851 Suicidal ideations (principal)

== ENCOUNTER 2021-10-17 19:51 | Emergency (ER) | payer SELFPAY ==
[2021-10-17 20:13] LABS: BASOPHILS % (AUTO) 0 % (0-10); EOSINOPHILS % (AUTO) 0 % (0-10); HEMATOCRIT 40 % (35-52); HEMOGLOBIN 12.9 g/dL (11.5-16.0); LYMPHOCYTES # (AUTO) 3.5 10^3/uL (1.0-4.0); LYMPHOCYTES % (AUTO) 33 % (12-44); MEAN CORPUSCULAR HEMOGLOBIN 26 pg (25-34); MEAN CORPUSCULAR HGB CONC 32 g/dL (32-36); MEAN CORPUSCULAR VOLUME 80 fL (80-99); MEAN PLATELET VOLUME 9.5 fL (9.0-12.2); MONOCYTES # (AUTO) 0.9 10^3/uL (0.0-1.0); MONOCYTES % (AUTO) 8 % (0-12); NEUTROPHILS # (AUTO) 6.4 10^3/uL (1.8-7.8); NEUTROPHILS % (AUTO) 59 % (42-75); PLATELET COUNT 350 10^3/uL (130-400); WHITE BLOOD COUNT 10.8 10^3/uL (4.3-11.0)
[2021-10-17] MEDS ORDERED: NS IV 1000 ML 1,000 ML IV SCH (20:15)
--- NOTE | 2021-10-17 20:15 | ED General ---
General Stated Complaint: CHEST PAIN;COVID + Source of Information: Patient History of Present Illness Date Seen by Provider: Oct 17, 2021 Time Seen by Provider: 19:59 Initial Comments 36-year-old female presenting via private vehicle with complaints of chest pressure and pain that is been constant since yesterday. She was diagnosed with COVID 2 days ago. She is on Paxlovid for Covid. She is a smoker but states she smokes 5-10 cigarettes a day. She has taken Acetaminophen and Ibuprofen for pain with little effect during the day. She denies fever or chills. She is coughing up yellow colored phlegm Timing/Duration: 1-2 Days Severity: Moderate Modifying Factors: worse with Other (cough makes it worse) Associated Systoms: Chest Pain, Cough; No Diaphoresis, No Fever/Chills, No Headaches; Malaise; No Nausea/Vomiting; Shortness of Air; No Syncope, No Weakness Allergies and Home Medications Allergies Coded Allergies: lamotrigine (Verified Allergy, Mild, 12/09/09) Patient Home Medication List Home Medication List Reviewed: Yes Amoxicillin/Potassium Clav (Augmentin 875-125 Tablet) 1 Each Tablet, 1 EACH PO BID Prescribed by: CARA CASEY on 01/22/202011 Aripiprazole (Abilify Discmelt) 10 Mg Tab.rapjeyson, (Reported) Entered as Reported by: REBECCA MARLOW on 12/09/09 1323 Butalbital/Aspirin/Caffeine (Fiorinal 50-325-40 mg Capsule) 1 Each Capsule, 1 EACH PO QID Prescribed by: RIGO CASTRO on 06/22/19 174 Fluoxetine Hcl (Fluoxetine Hcl) 20 Mg Capsule, (Reported) Entered as Reported by: REBECCA MARLOW on 12/09/09 1321 Hydrocodone Bit/Acetaminophen (Lortab 5 Mg Tablet) 1 Tab Tab, 1 EACH PO Q4-6HR PRN for PAIN-MODERATE Prescribed by: RIGO CASTRO on 04/01/19 222 Ondansetron (Ondansetron Odt) 4 Mg Tab.rapdis, 4 MG PO TID Prescribed by: RIGO CASTRO on 06/22/19 174 Oxycodone HCl/Acetaminophen (Endocet 5-325 Tablet) 1 Each Tablet, 1 EACH PO Q4H PRN for PAIN-MODERATE Prescribed by: DEREK SMITH on 09/13/202206 Prednisone (Prednisone) 20 Mg Tab, 40 MG PO DAILY Prescribed by: RAKAN REZA on 10/17/212236 Prochlorperazine Maleate (Compazine) 10 Mg Tablet, 10 MG PO Q8H Prescribed by: TAE GRAY on 05/06/20 1500 Topiramate (Topamax) 100 Mg Tablet, (Reported) Entered as Reported by: REBECCA MARLOW on 12/09/09 1321 Review of Systems Review of Systems Constitutional: No chills, No fever; malaise EENTM: nose congestion Respiratory: cough, phlegm (yellow colored), short of breath Cardiovascular: see HPI; No edema, No palpitations, No syncope Gastrointestinal: no symptoms reported Genitourinary: no symptoms reported Musculoskeletal: no symptoms reported Skin: no symptoms reported Psychiatric/Neurological: Anxiety Hematologic/Lymphatic: Denies Blood Clots Past Bgnlxtz-Vqvhei-Dbuvse Hx Patient Social History Tobacco Use?: Yes Tobacco type used: Cigarettes Smoking Status: Current Everyday Smoker Immunizations Up To Date Tetanus Booster (TDap): Less than 5yrs Seasonal Allergies Seasonal Allergies: No Past Medical History Surgeries: Yes (Cyst removal from knee) Respiratory: No Cardiac: No Neurological: Yes Headaches /Migraines Reproductive Disorders: No Sexually Transmitted Disease: No Genitourinary: No Gastrointestinal: No Musculoskeletal: No Endocrine: No HEENT: No Cancer: No Psychosocial: No Integumentary: No Blood Disorders: No Physical Exam Vital Signs Vital Signs - First Documented 10/17/21 20:00 Temp 36.4 Pulse 93 Resp 18 B/P (MAP) 138/69 (92) Pulse Ox 100 O2 Delivery Room Air Capillary Refill : Height, Weight, BMI Height: 5'1.00" Weight: 200lbs. oz. 90.120034jn; 38.00 BMI Method:Stated General Appearance: No Apparent Distress, Obese HEENT: PERRL/EOMI, Pharynx Normal Neck: Full Range of Motion, Normal Inspection, Non Tender, Supple Respiratory: Chest Non Tender, Lungs Clear, Normal Breath Sounds, No Accessory Muscle Use, No Respiratory Distress Cardiovascular: Regular Rate, Rhythm, Normal Peripheral Pulses Gastrointestinal: Normal Bowel Sounds, No Pulsatile Mass, Non Tender, Soft Rectal: Deferred Extremity: Normal Capillary Refill, Normal Inspection, No Calf Tenderness, No Pedal Edema Neurologic/Psychiatric: Alert, Oriented x3 Skin: Normal Color, Warm/Dry Progress/Results/Core Measures Suspected Sepsis SIRS Temperature: Pulse: Respiratory Rate: Laboratory Tests 10/17/21 20:05: White Blood Count 10.8 Blood Pressure / Mean: Laboratory Tests 10/17/21 20:05: Creatinine 0.71, INR Comment 0.9, Platelet Count 350, Total Bilirubin 0.2 Results/Orders Lab Results Laboratory Tests Test 10/17/21 20:05 Range/Units White Blood Count 10.8 4.3-11.0 10^3/uL Red Blood Count 5.05 3.80-5.11 10^6/uL Hemoglobin 12.9 11.5-16.0 g/dL Hematocrit 40 35-52 % Mean Corpuscular Volume 80 80-99 fL Mean Corpuscular Hemoglobin 26 25-34 pg Mean Corpuscular Hemoglobin Concent 32 32-36 g/dL Red Cell Distribution Width 14.5 10.0-14.5 % Platelet Count 350 130-400 10^3/uL Mean Platelet Volume 9.5 9.0-12.2 fL Immature Granulocyte % (Auto) 0 % Neutrophils (%) (Auto) 59 42-75 % Lymphocytes (%) (Auto) 33 12-44 % Monocytes (%) (Auto) 8 0-12 % Eosinophils (%) (Auto) 0 0-10 % Basophils (%) (Auto) 0 0-10 % Neutrophils # (Auto) 6.4 1.8-7.8 10^3/uL Lymphocytes # (Auto) 3.5 1.0-4.0 10^3/uL Monocytes # (Auto) 0.9 0.0-1.0 10^3/uL Eosinophils # (Auto) 0.0 0.0-0.3 10^3/uL Basophils # (Auto) 0.0 0.0-0.1 10^3/uL Immature Granulocyte # (Auto) 0.0 0.0-0.1 10^3/uL Prothrombin Time 12.3 12.2-14.7 SEC INR Comment 0.9 0.8-1.4 Activated Partial Thromboplast Time 26 24-35 SEC D-Dimer 0.83 H 0.00-0.49 UG/ML Sodium Level 137 135-145 MMOL/L Potassium Level 4.1 3.6-5.0 MMOL/L Chloride Level 104 98-107 MMOL/L Carbon Dioxide Level 22 21-32 MMOL/L Anion Gap 11 5-14 MMOL/L Blood Urea Nitrogen 12 7-18 MG/DL Creatinine 0.71 0.60-1.30 MG/DL Estimat Glomerular Filtration Rate 112 BUN/Creatinine Ratio 17 Glucose Level 91 70-105 MG/DL Calcium Level 9.4 8.5-10.1 MG/DL Corrected Calcium 9.5 8.5-10.1 MG/DL Total Bilirubin 0.2 0.1-1.0 MG/DL Aspartate Amino Transf (AST/SGOT) 28 5-34 U/L Alanine Aminotransferase (ALT/SGPT) 28 0-55 U/L Alkaline Phosphatase 99 40-136 U/L Troponin I < 0.30 <0.30 NG/ML C-Reactive Protein 2.82 H <0.50 MG/DL Total Protein 7.3 6.4-8.2 GM/DL Albumin 3.9 3.2-4.5 GM/DL My Orders Orders - RAKAN REZA MD Ekg Tracing (10/17/21 19:59) Monitor-Rhythm Ecg Trace Only (10/17/21 20:07) Ed Iv/Invasive Line Start (10/17/21 20:07) Hcg,Qualitative Urine (10/17/21 20:07) Cbc With Automated Diff (10/17/21 20:07) Comprehensive Metabolic Panel (10/17/21 20:07) Crp Fs (10/17/21 20:07) Troponin I Fs (10/17/21 20:07) Protime With Inr (10/17/21 20:07) Partial Thromboplastin Time (10/17/21 20:07) Ns Iv 1000 Ml (Sodium Chloride 0.9%) (10/17/21 20:15) Fibrin Degradation Products (10/17/21 20:07) Chest 1 View Ap/Pa Only (10/17/21 20:07) Dexamethasone Injection (Decadron Inje (10/17/21 20:07) Ct Angio Chest W (10/17/21 20:53) Iohexol Injection (Omnipaque 350 Mg/Ml 1 (10/17/21 21:15) Received Contrast (Hold Metformin- Contr (10/17/21 21:15) Ns (Ivpb) (Sodium Chloride 0.9% Ivpb Bag (10/17/21 21:15) Albuterol Inhaler (Albuterol) (10/17/21 22:33) Medications Given in ED Current Medications Medications Dose Ordered Sig/Everardo Route Start Time Stop Time Status Last Admin Dose Admin Iohexol 125 ml ONCE ONCE IV 10/17/21 21:15 10/17/21 21:16 DC 10/17/21 21:11 125 ML Sodium Chloride 100 ml ONCE ONCE IV 10/17/21 21:15 10/17/21 21:16 DC 10/17/21 21:11 100 ML Vital Signs/I&O 10/17/21 10/17/21 20:00 22:26 Temp 36.4 Pulse 93 79 Resp 18 20 B/P (MAP) 138/69 (92) 121/62 Pulse Ox 100 97 O2 Delivery Room Air Room Air Capillary Refill : Progress Note #1: Progress Note check ECG, CXR, labs with D dimer and troponin. Try IVF 1 L NS for hydration, Decadron 10 mg IV for pain and inflammation. Her oxygen saturation is 98-100% on room air and she is in no distress. Progress Note #2: Progress Note Labs are all stable without acute significant abnormality other than she has mild elevation of her D-dimer. With her complaint of chest pain will obtain a CT angiogram of the chest. Her chest x-ray does not show any acute abnormality. Progress Note #3: Progress Note CT angiogram of the chest is negative for pulmonary embolism. She also has no acute process in the chest. Will proceed with treatment for pleuritic chest pain secondary to her Covid infection. Encouraged her to quit smoking. We will offer her an inhaler to help with the cough and shortness of breath. a short steroid burst will likely help as well since she is a smoker so there may be a component of COPD. ECG Initial ECG Impression Date: Oct 17, 2021 Initial ECG Impression Time: 20:09 Initial ECG Rate: 84 Initial ECG Rhythm: Normal Sinus Initial ECG Comparisson: No Previous ECG Available Comment Normal sinus rhythm with a heart rate of 84 bpm. MN interval [address] elevation. QT interval 375 ms with a QTc interval 444 ms. No prior tracing available for comparison. Diagnostic Imaging Diagonstic Imaging: Xray Plain Films/CT/US/NM/MRI: chest Comments [facility] [place], [place] NAME: JUSTINA CARRASCO MED REC#: [id number] PT STATUS: REG ER : 1985 PHYSICIAN: RAKAN REZA MD ADMIT DATE: 10/17/21/ER FS Draft Date of Exam:10/17/21 CHEST 1 VIEW AP/PA ONLY EXAM: Chest, 1 view, AP/PA only. INDICATION: Chest pain. Shortness of breath. COVID positive. COMPARISON: None. FINDINGS: Normal heart size and central pulmonary vascularity. No focal pulmonary opacity. No pleural effusion or pneumothorax. No acute osseous findings. IMPRESSION: No acute cardiopulmonary findings. Dictated on workstation # [id number] Dict: 10/17/212051 Trans: 10/17/212058 [facility] [id number] Interpreted by: OBDULIA HERNANDEZ MD Electronically signed by: Reviewed: Reviewed by Ks Diagonstic Imaging: CT Plain Films/CT/US/NM/MRI: chest Comments NAME: JUSTINA CARRASCO [facility] REC#: [id number] PT STATUS: REG ER : 1985 PHYSICIAN: RAKAN REAZ MD ADMIT DATE: 10/17/21/ER FS Draft Date of Exam:10/17/21 CT ANGIO CHEST W PROCEDURE: CT angiography of the chest with contrast. TECHNIQUE: Multiple contiguous axial images were obtained through the chest after uneventful bolus administration of intravenous contrast. 3D reconstructed CTA MIP acquisitions were also performed. Auto Exposure Controls were utilized during the CT exam to meet ALARA standards for radiation dose reduction. INDICATION: Elevated D-dimer. Chest pain. COVID positive. COMPARISON: Chest radiograph 10/17/2021. FINDINGS: No pulmonary artery filling defects. Normal caliber thoracic aorta. Normal heart size. No pericardial effusion. No lymphadenopathy. The lungs are clear. No pleural effusion or pneumothorax. No acute osseous findings. Visualized upper abdominal contents are unremarkable. IMPRESSION: 1. No pulmonary emboli. 2. No acute CT findings in the chest. Dictated on workstation # [id number] Dict: 10/17/212152 Trans: 10/17/212199 [facility] [id number] Interpreted by: OBDULIA HERNANDEZ MD Electronically signed by: Reviewed: Reviewed by Me Departure Impression Primary Impression: Chest pain, pleuritic Additional Impression: Lower respiratory tract infection due to COVID-19 virus Disposition: 01 HOME, SELF-CARE Condition: Stable Departure-Patient Inst. Decision time for Depature: 22:35 Referrals: KOJO VICK MD (PCP/Family) Primary Care Physician Patient Instructions: COVID-19 ED, COVID-19 Overview, How to Use a Metered Dose Inhaler ED, How to Use a Spacer, Pleuritic Chest Pain ED Add. Discharge Instructions: Stay well hydrated and drink plenty of fluids Take the steroids to help with cough and congestion as well as the chest pains from inflammation due to Covid infection. Try to quit smoking. Use the Albuterol inhaler with the spacer to help with cough and chest pains. Use this by taking 2 puffs of the inhaler with the spacer every 4 hours as needed for chest pain, cough, shortness of breath. Consider taking Mucinex over the counter to help loosen your cough so you do not have to cough so hard to get anything to come up. Check back with clinic about continued concerns/problems. Scripts Prednisone (Prednisone) 20 Mg Tab 40 MG PO DAILY for cough/chest pain for 5 Days, #10 TAB 0 Refills Prov: RAKAN REZA MD 10/17/21 RAKAN REZA MD Oct 17, 2021 20:15
[2021-10-17 20:23] LABS: INR 0.9 (0.8-1.4); PROTHROMBIN TIME PATIENT 12.3 SEC (12.2-14.7)
[2021-10-17 20:36] LABS: ALANINE AMINOTRANSFERASE 28 U/L (0-55); ALKALINE PHOSPHATASE 99 U/L (40-136); BILIRUBIN,TOTAL 0.2 MG/DL (0.1-1.0); BUN/CREATININE RATIO 17; CALCIUM 9.4 MG/DL (8.5-10.1); CARBON DIOXIDE 22 MMOL/L (21-32); CHLORIDE 104 MMOL/L (98-107); CREATININE SERUM 0.71 MG/DL (0.60-1.30); GFR ESTIMATED 112; GLUCOSE 91 MG/DL (70-105); POTASSIUM 4.1 MMOL/L (3.6-5.0); SODIUM 137 MMOL/L (135-145)
[2021-10-17 20:37] LABS: ALBUMIN 3.9 GM/DL (3.2-4.5); TOTAL PROTEIN 7.3 GM/DL (6.4-8.2)
--- NOTE | 2021-10-17 20:54 | Diagnostic Imaging Report ---
EXAM: Chest, 1 view, AP/PA only. INDICATION: Chest pain. Shortness of breath. COVID positive. COMPARISON: None. FINDINGS: Normal heart size and central pulmonary vascularity. No focal pulmonary opacity. No pleural effusion or pneumothorax. No acute osseous findings. IMPRESSION: No acute cardiopulmonary findings. Dictated by: Dictated on workstation # [id number]
[2021-10-17] MEDS ORDERED: IOHEXOL 350 MG/ML 150 ML (OMNIPAQUE 350) VIAL IV ONE (21:15)
[2021-10-17] MEDS ORDERED: HOLD METFORMIN - RECEIVED CONTRAST 20 ML VIAL IV SCH (21:15)
[2021-10-17] MEDS ORDERED: NS 100 ML (IVPB) BAG IV ONE (21:15)
--- NOTE | 2021-10-17 22:00 | Diagnostic Imaging Report ---
PROCEDURE: CT angiography of the chest with contrast. TECHNIQUE: Multiple contiguous axial images were obtained through the chest after uneventful bolus administration of intravenous contrast. 3D reconstructed CTA MIP acquisitions were also performed. Auto Exposure Controls were utilized during the CT exam to meet ALARA standards for radiation dose reduction. INDICATION: Elevated D-dimer. Chest pain. COVID positive. COMPARISON: Chest radiograph 10/17/2021. FINDINGS: No pulmonary artery filling defects. Normal caliber thoracic aorta. Normal heart size. No pericardial effusion. No lymphadenopathy. The lungs are clear. No pleural effusion or pneumothorax. No acute osseous findings. Visualized upper abdominal contents are unremarkable. IMPRESSION: 1. No pulmonary emboli. 2. No acute CT findings in the chest. Dictated by: Dictated on workstation # [id number]
[2021-10-17 22:26] VITALS: BP 121/62
[2021-10-17] MEDS ORDERED: RT-ALBUTEROL HFA 8.5 GM INHALER IH STA (22:33)
[2021-10-17] MEDS ORDERED: PRD20T PO (22:37)
== END 2021-10-17 22:45 | disposition home or self-care (01) ==
LOC: EDUNIT# 19:51 → ER FS 19:54
DX: R07.2 Precordial pain (principal); U07.1 COVID-19; J22 Unspecified acute lower respiratory infection; F17.210 Nicotine dependence, cigarettes, uncomplicated; Z73.0 Burn-out
CPT/HCPCS: 36415; 71045; 71275; 80053; 84484; 85025; 85379; 85610; 85730; 86141; 93005; 93041; 96361; 96374; Q9967

== ENCOUNTER 2021-12-12 10:38 | Emergency (ER) | payer OTHER ==
[~2021-12-12] VITALS: Ht 154.9 cm; Wt 99.8 kg
[~2021-12-12 10:38] MED LIST changes: +PRD20T PO
--- NOTE | 2021-12-12 11:07 | Diagnostic Imaging Report ---
INDICATION: Pop and pain FINDINGS: 4 view left shoulder demonstrates no fracture, dislocation or acute appearing articular irregularity. IMPRESSION: No acute appearing abnormality. Dictated by: Dictated on workstation # [id number]
--- NOTE | 2021-12-12 12:04 | ED Upper Extremity ---
General Chief Complaint: Upper Extremity Stated Complaint: SHOULDER INJ Nursing Triage Note: PT AMBULATE TO ROOM FS04 WITH C/O LEFT SHOULDER PAIN X2 WEEKS. PT REPORTS SHE WAS AT WORK WIPING TABLE AND FELT HER SHOULDER POP. PT STATES WAS SEEN AT URGENT CARE FOR THIS C/O. PT SHE WAS NOT PRESCRIBED PAIN MEDS AND HER LEFT SHOULDER STILL HURTS. Source: patient History of Present Illness Date Seen by Provider: Dec 12, 2021 Time Seen by Provider: 10:49 Initial Comments 36-year-old female presenting with complaints of left shoulder pain. This is been going on for over 2 weeks now. She states that she was working on a table at work and felt a pop in her shoulder area. She was seen in urgent care and work comp about this already. They had prescribed a steroid and muscle relaxer however she states that the pharmacy never got the muscle relaxer prescription. She has work restrictions that limit her activity but states that her employer has continued to have her do her normal duties. 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 She continues to have increased pain and spasm es pecially in the trapezius muscle area. She reports also getting some intermittent numbness and tingling into her hand. Onset: other (2 weeks ago) Severity: severe Pain/Injury Location: left shoulder Method of Injury: other (While cleaning at work she had felt a pop) Modifying Factors: Worse With Movement (Movement of the left shoulder makes it worse) Allergies and Home Medications Allergies Coded Allergies: lamotrigine (Verified Allergy, Mild, 12/09/09) Patient Home Medication List Home Medication List Reviewed: Yes Amoxicillin/Potassium Clav (Augmentin 875-125 Tablet) 1 Each Tablet, 1 EACH PO BID Prescribed by: CARA CASEY on 01/22/202011 Aripiprazole (Abilify Discmelt) 10 Mg Tab.jagjit, (Reported) Entered as Reported by: REBECCA MARLOW on 12/09/09 1323 Butalbital/Aspirin/Caffeine (Fiorinal 50-325-40 mg Capsule) 1 Each Capsule, 1 EACH PO QID Prescribed by: RIGO CASTRO on 06/22/19 1749 Cyclobenzaprine HCl (Cyclobenzaprine HCl) 10 Mg Tablet, 10 MG PO Q8H PRN for SPASMS Prescribed by: RAKAN REZA on 12/12/21 1224 Fluoxetine Hcl (Fluoxetine Hcl) 20 Mg Capsule, (Reported) Entered as Reported by: REBECCA MARLOW on 12/09/09 1321 Hydrocodone Bit/Acetaminophen (Lortab 5 Mg Tablet) 1 Tab Tab, 1 EACH PO Q4-6HR PRN for PAIN-MODERATE Prescribed by: RIGO CASTRO on 04/01/19 222 Ondansetron (Ondansetron Odt) 4 Mg Tab.rapdis, 4 MG PO TID Prescribed by: RIGO CASTRO on 06/22/19 1749 Oxycodone HCl/Acetaminophen (Endocet 5-325 Tablet) 1 Each Tablet, 1 EACH PO Q4H PRN for PAIN-MODERATE Prescribed by: DEREK SMITH on 09/13/202206 Prednisone (Prednisone) 20 Mg Tab, 40 MG PO DAILY Prescribed by: RAKAN REZA on 10/17/212236 Prochlorperazine Maleate (Compazine) 10 Mg Tablet, 10 MG PO Q8H Prescribed by: TAE GRAY on 05/06/20 1500 Topiramate (Topamax) 100 Mg Tablet, (Reported) Entered as Reported by: REBECCA MARLOW on 12/09/09 1321 Review of Systems Constitutional: No chills, No fever EENTM: no symptoms reported Respiratory: no symptoms reported Cardiovascular: no symptoms reported Gastrointestinal: no symptoms reported Genitourinary: no symptoms reported Musculoskeletal: see HPI Skin: no symptoms reported Psychiatric/Neurological: See HPI Past Heogpxz-Zlgmmp-Pjpsgf Hx Patient Social History Tobacco Use?: Yes Tobacco type used: Cigarettes Smoking Status: Current Everyday Smoker Smokeless Tobacco Frequency: Never a User Use of E-Cig and/or Vaping dev: No Use of E-Cig and/or Vaping Philippe: Never a User Substance use?: No Alcohol Use?: Yes Alcohol Frequency: Once in a while Immunizations Up To Date Tetanus Booster (TDap): Less than 5yrs COVID19 Vaccine 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: MODERNA Seasonal Allergies Seasonal Allergies: No Past Medical History Surgeries: Yes (Cyst removal from knee) Respiratory: No Cardiac: No Neurological: Yes Headaches /Migraines Reproductive Disorders: No Sexually Transmitted Disease: No Genitourinary: No Gastrointestinal: No Musculoskeletal: No Endocrine: No HEENT: No Cancer: No Psychosocial: No Integumentary: No Blood Disorders: No Physical Exam Vital Signs Vital Signs - First Documented 12/12/21 12/12/21 10:43 12:31 Temp 36.1 Pulse 80 Resp 16 B/P (MAP) 107/61 (76) Pulse Ox 100 O2 Delivery Room Air Capillary Refill : Less Than 3 Seconds Height, Weight, BMI Height: 5'1.00" Weight: 200lbs. oz. 90.681111ra; 41.00 BMI Method:Stated General Appearance: WD/WN, no apparent distress HEENT: PERRL/EOMI Neck: tender lateral (Especially in the left lateral paraspinal area and along the trapezius muscle distribution) Cardiovascular: normal peripheral pulses, regular rate, rhythm Respiratory: chest non-tender, lungs clear, normal breath sounds, no respiratory distress, no accessory muscle use Back: no CVA tenderness, no vertebral tenderness Shoulder: limited ROM (Limited range of motion of the left shoulder with pain), soft tissue tenderness (Tender to palpation over the left trapezius muscle with spasm and tightness of the muscle.) Elbow/Forearm: normal inspection, non-tender, no evidence of injury, normal ROM Wrist: Yes normal inspection, Yes non-tender, Yes no evidence of injury, Yes normal ROM Hand: normal inspection, non-tender, no evidence of injury, normal ROM Neurologic/Tendon: normal sensation, normal motor functions, normal tendon functions Neurologic/Psychiatric: alert, oriented x 3 Skin: normal color, warm/dry Progress/Results/Core Measures Results/Orders My Orders Orders - RAKAN REZA MD Shoulder 3 View Left (12/12/21 10:53) Vital Signs/I&O 12/12/21 12/12/21 10:43 12:31 Temp 36.1 Pulse 80 69 Resp 16 19 B/P (MAP) 107/61 (76) 144/84 Pulse Ox 100 O2 Delivery Room Air Room Air Blood Pressure Mean: 76 Progress Progress Note : Progress Note X-rays of the left shoulder were obtained and did not demonstrate any acute fracture or dislocation. Counseled patient that using a muscle relaxer and alternate ice and heat should help with her symptoms. Also given a note for her work recommending that they follow the work comp recommendations. Encouraged to follow-up with work comp. Will send a prescription for cyclobenzaprine to the pharmacy as patient states that she has tolerated that in the past but cannot tolerate tizanidine. Diagnostic Imaging Diagonstic Imaging: Xray Plain Films/CT/US/NM/MRI: other (Shoulder) Comments [facility]. [place], [place] NAME: JUSTINA CARRASCO [facility] REC#: [id number] PT STATUS: REG ER : 1985 PHYSICIAN: RAKAN REZA MD ADMIT DATE: 12/12/21/ER FS Signed Date of Exam:12/12/21 SHOULDER 3 VIEW LEFT INDICATION: Pop and pain FINDINGS: 4 view left shoulder demonstrates no fracture, dislocation or acute appearing articular irregularity. IMPRESSION: No acute appearing abnormality. Dictated by: Dictated on workstation # [id number] Dict: 12/12/21 1105 Trans: 12/12/21 1123 [facility] [id number] Interpreted by: STEVEN CEDENO Electronically signed by: STEVEN CEDENO 12/12/213 Reviewed: Reviewed by Me Departure Impression Primary Impression: Strain of left trapezius muscle Qualified Codes: S46.812A - Strain of other muscles, fascia and tendons at shoulder and upper arm level, left arm, initial encounter Additional Impression: Left shoulder strain Qualified Codes: S46.912A - Strain of unspecified muscle, fascia and tendon at shoulder and upper arm level, left arm, initial encounter Disposition: 01 HOME, SELF-CARE Condition: Stable Departure-Patient Inst. Decision time for Depature: 12:22 Referrals: KOJO VICK MD (PCP/Family) Primary Care Physician Patient Instructions: Muscle Strain ED, Shoulder Pain ED, Using Cold for Pain Add. Discharge Instructions: Take the Cyclobenzaprine (Flexeril) muscle relaxer to help with the muscle inflammation and stiffness in your shoulder and trapezius muscle. May apply ice 20 to 30 minutes and then alternate with heat every few hours to try and help with inflammation and muscle strain Check back with Workman's Comp clinic about continued pain and issues All discharge instructions reviewed with patient and/or family. Voiced understanding. Scripts Cyclobenzaprine HCl (Cyclobenzaprine HCl) 10 Mg Tablet 10 MG PO Q8H PRN for SPASMS for 10 Days, #30 TAB 0 Refills Prov: RAKAN REZA MD 12/12/21 Work/School Note: Work Release Form Date Seen in the Emergency Department: Dec 12, 2021 Return to Work: Dec 13, 2021 Restrictions: Follow Up With [facility] Other Restrictions Listed Below: Follow the recommended restrictions from Work Comp RAKAN REZA MD Dec 12, 2021 12:04
[2021-12-12] MEDS ORDERED: CYCL10TA25 PO (12:24)
[2021-12-12 12:31] VITALS: BP 144/84
== END 2021-12-12 12:31 | disposition home or self-care (01) ==
LOC: EDUNIT# 10:38 → ER FS 10:40
DX: S46.812A Strain of other muscles, fascia and tendons at shoulder and upper arm level, left arm, initial encounter (principal); F17.210 Nicotine dependence, cigarettes, uncomplicated; X50.1XXA Overexertion from prolonged static or awkward postures, initial encounter
CPT/HCPCS: 73030

== ENCOUNTER 2022-10-10 17:26 | Emergency (ER) | payer SELFPAY ==
[~2022-10-10 17:26] MED LIST changes: +CYCL10TA25 PO
[2022-10-10] MEDS ORDERED: CYCLOBENZAPRINE 10 MG (FLEXERIL) TAB PO STA (17:40)
[2022-10-10] MEDS ORDERED: KETOROLAC 15 MG/ML VIAL IM ONE (17:45)
[2022-10-10] MEDS ORDERED: PROCHLORPERAZINE 10 MG/2ML INJ (COMPAZINE) IM ONE (17:45)
[2022-10-10] MEDS ORDERED: diphenhydrAMINE 50 MG/ML INJ (BENADRYL) IM ONE (17:45)
[2022-10-10] MEDS ORDERED: CYCL10TA25 PO (17:46)
--- NOTE | 2022-10-10 17:46 | ED General ---
General Stated Complaint: NECK/JAW/HEAD PAIN Source of Information: Patient Exam Limitations: No Limitations History of Present Illness Date Seen by Provider: Oct 10, 2022 Time Seen by Provider: 17:29 Initial Comments 37-year-old female with past medical history of chronic migraines and TMJ disorder coming in due to jaw pain. She states its been going on for couple weeks, she used to wear a mouthguard's, but has been unable to since she had a root canal with significant pain with the mouthguard then. Pain is worse in the morning from clenching her teeth at night. Radiates from her jaw near her ears down her neck. Worse when she tries to open her mouth. Took ibuprofen this morning which did help some. Denies any fever, difficulty swallowing, voice changes, neck stiffness, or any other concerns Allergies and Home Medications Allergies Coded Allergies: lamotrigine (Verified Allergy, Mild, 12/09/09) Patient Home Medication List Home Medication List Reviewed: Yes Amoxicillin/Potassium Clav (Augmentin 875-125 Tablet) 1 Each Tablet, 1 EACH PO BID Prescribed by: CARA CASEY on 01/22/202011 Aripiprazole (Abilify Discmelt) 10 Mg Tab.rapdis, (Reported) Entered as Reported by: REBECCA MARLOW on 12/09/09 1323 Butalbital/Aspirin/Caffeine (Fiorinal 50-325-40 mg Capsule) 1 Each Capsule, 1 EACH PO QID Prescribed by: RIGO CASTRO on 06/22/19 1749 Cyclobenzaprine HCl (Cyclobenzaprine HCl) 10 Mg Tablet, 10 MG PO Q8H PRN for SPASMS Prescribed by: RAKAN REZA on 12/12/21 1224 Fluoxetine Hcl (Fluoxetine Hcl) 20 Mg Capsule, (Reported) Entered as Reported by: REBECCA MARLOW on 12/09/09 1321 Hydrocodone Bit/Acetaminophen (Lortab 5 Mg Tablet) 1 Tab Tab, 1 EACH PO Q4-6HR PRN for PAIN-MODERATE Prescribed by: RGIO CASTRO on 04/01/19 2222 Ondansetron (Ondansetron Odt) 4 Mg Tab.rapdis, 4 MG PO TID Prescribed by: RIGO CASTRO on 06/22/19 174 Oxycodone HCl/Acetaminophen (Endocet 5-325 Tablet) 1 Each Tablet, 1 EACH PO Q4H PRN for PAIN-MODERATE Prescribed by: DEREK SMITH on 09/13/202206 Prednisone (Prednisone) 20 Mg Tab, 40 MG PO DAILY Prescribed by: RAKAN REZA on 10/17/212236 Prochlorperazine Maleate (Compazine) 10 Mg Tablet, 10 MG PO Q8H Prescribed by: TAE GRAY on 05/06/20 1500 Topiramate (Topamax) 100 Mg Tablet, (Reported) Entered as Reported by: REBECCA MARLOW on 12/09/09 1321 Review of Systems Review of Systems Constitutional: No fever EENTM: see HPI Respiratory: no symptoms reported Cardiovascular: no symptoms reported Gastrointestinal: no symptoms reported Genitourinary: no symptoms reported Musculoskeletal: no symptoms reported Skin: no symptoms reported Psychiatric/Neurological: No Symptoms Reported Past Blqwoqu-Konpwd-Coirui Hx Patient Social History Tobacco Use?: Yes Substance use?: No Alcohol Use?: No Immunizations Up To Date Tetanus Booster (TDap): Less than 5yrs Seasonal Allergies Seasonal Allergies: No Past Medical History Surgeries: Yes (Cyst removal from knee) Orthopedic, Tubal Ligation Respiratory: No Cardiac: No Neurological: Yes Headaches /Migraines Reproductive Disorders: No Sexually Transmitted Disease: No Genitourinary: No Gastrointestinal: No Musculoskeletal: No Endocrine: No HEENT: No Cancer: No Psychosocial: No Integumentary: No Blood Disorders: No Physical Exam Vital Signs Capillary Refill : Height, Weight, BMI Height: 5'1.00" Weight: 200lbs. oz. 90.108457kd; 41.00 BMI Method:Stated General Appearance: No Apparent Distress, WD/WN Eyes: Bilateral Eye Normal Inspection HEENT: PERRL/EOMI, Pharynx Normal, Other (Pain along her TMJ, popping felt with opening and closing her mouth, no trismus, oropharynx normal-appearing, neck is soft and nontender, no meningismus, normal voice, tolerating secretions) Neck: Full Range of Motion, Normal Inspection, Non Tender, Supple Respiratory: Chest Non Tender, Lungs Clear, Normal Breath Sounds, No Accessory Muscle Use, No Respiratory Distress Cardiovascular: Regular Rate, Rhythm, No Edema, Normal Peripheral Pulses Gastrointestinal: Normal Bowel Sounds, Non Tender, Soft Back: Normal Inspection, No CVA Tenderness Extremity: Normal Capillary Refill, Normal Inspection, Normal Range of Motion, Non Tender, No Calf Tenderness, No Pedal Edema Neurologic/Psychiatric: Alert, No Motor/Sensory Deficits, Normal Mood/Affect Skin: Normal Color, Warm/Dry Progress/Results/Core Measures Suspected Sepsis SIRS Temperature: Pulse: Respiratory Rate: Blood Pressure / Mean: Results/Orders My Orders Orders - ANDREA REYEZ MD Ketorolac Injection (Toradol Injection) (10/10/22 17:45) Vital Signs/I&O Capillary Refill : Progress Note : Progress Note 37-year-old female with above history coming in due to jaw pain. ABCs were intact and vitals were stable on presentation. Physical exam concerning for TMJ disorder with no red flags. She was given IM Toradol, oral Flexeril, as well as a migraine cocktail given she does have a mild headache likely brought on by this as well. I will send her prescription for muscle relaxers and refer her back to her dentist for potential referral for TMJ specialist. I believe she is otherwise stable for discharge with outpatient follow-up. She was sent home with strict return precautions Departure Impression Primary Impression: TMJ disease Disposition: HOME, SELF-CARE Condition: Stable Departure-Patient Inst. Decision time for Depature: 17:50 Referrals: KOJO VICK MD (PCP) Primary Care Physician Patient Instructions: Temporomandibular Joint (TMJ) Disorders (DC) Add. Discharge Instructions: We believe this is coming from your TMJ disorder. I recommend following back up with your dentist to see if they can have you see a TMJ specialist. Sometimes they are able to do Botox in certain muscles in your face which can help significantly. Take ibuprofen and Tylenol as needed for pain. You can try the muscle relaxer as well to help. Scripts Cyclobenzaprine HCl (Cyclobenzaprine HCl) 10 Mg Tablet 10 MG PO Q8H PRN for SPASMS for 5 Days, #15 TAB 0 Refills Prov: ANDREA REYEZ MD 10/10/22 Work/School Note: Work Release Form Date Seen in the Emergency Department: Oct 10, 2022 Return to Work: Oct 11, 2022 Restrictions: No Restrictions ANDREA REYEZ MD Oct 10, 2022 17:46
[2022-10-10 18:04] VITALS: BP 154/98
== END 2022-10-10 18:03 | disposition home or self-care (01) ==
LOC: EDUNIT# 17:26 → ER FS 17:28
DX: M26.609 Unspecified temporomandibular joint disorder, unspecified side (principal)
CPT/HCPCS: 99284

== ENCOUNTER 2022-12-12 20:50 | Emergency (ER) | payer SELFPAY ==
--- NOTE | 2022-12-12 21:07 | ED Headache ---
General Chief Complaint: Head/Cervical Problems Stated Complaint: HEADACHE Nursing Triage Note: Pt states she has a migraine that started sometime this afternoon History of Present Illness Date Seen by Provider: Dec 12, 2022 Time Seen by Provider: 21:06 Initial Comments 37-year-old female with PMH of migraine, is here with complaints of right-sided migraine headache which started today afternoon. Patient has had a lot of sun exposure this past weekend, and has not been drinking much water, which she thinks may be the trigger for it. Patient had aura of black spots right before she got her migraine. Patient came to the ER to get the migraine cocktail which usually helps her. She has associated photophobia. Denies nausea and vomiting, falls, blurry vision. Allergies and Home Medications Allergies Coded Allergies: lamotrigine (Verified Allergy, Mild, 12/09/09) Patient Home Medication List Home Medication List Reviewed: Yes Amoxicillin/Potassium Clav (Augmentin 875-125 Tablet) 1 Each Tablet, 1 EACH PO BID Prescribed by: CARA CASEY on 01/22/202011 Aripiprazole (Abilify Discmelt) 10 Mg Tab.rapdis, (Reported) Entered as Reported by: REBECCA MARLOW on 12/09/09 1323 Butalbital/Aspirin/Caffeine (Fiorinal 50-325-40 mg Capsule) 1 Each Capsule, 1 EACH PO QID Prescribed by: RIGO CASTRO on 06/22/19 1749 Cyclobenzaprine HCl (Cyclobenzaprine HCl) 10 Mg Tablet, 10 MG PO Q8H PRN for SPASMS Prescribed by: RAKAN REZA on 12/12/21 1224 Cyclobenzaprine HCl (Cyclobenzaprine HCl) 10 Mg Tablet, 10 MG PO Q8H PRN for SPASMS Prescribed by: ANDREA REYEZ on 10/10/22 174 Fluoxetine Hcl (Fluoxetine Hcl) 20 Mg Capsule, (Reported) Entered as Reported by: REBECCA MARLOW on 12/09/09 1321 Hydrocodone Bit/Acetaminophen (Lortab 5 Mg Tablet) 1 Tab Tab, 1 EACH PO Q4-6HR PRN for PAIN-MODERATE Prescribed by: RIGO CASTRO on 04/01/19 2222 Ondansetron (Ondansetron Odt) 4 Mg Tab.rapdis, 4 MG PO TID Prescribed by: RIGO CASTRO on 06/22/19 1749 Oxycodone HCl/Acetaminophen (Endocet 5-325 Tablet) 1 Each Tablet, 1 EACH PO Q4H PRN for PAIN-MODERATE Prescribed by: DEREK SMITH on 09/13/202206 Prednisone (Prednisone) 20 Mg Tab, 40 MG PO DAILY Prescribed by: RAKAN REZA on 10/17/212236 Prochlorperazine Maleate (Compazine) 10 Mg Tablet, 10 MG PO Q8H Prescribed by: TAE GRAY on 05/06/20 1500 Topiramate (Topamax) 100 Mg Tablet, (Reported) Entered as Reported by: REBECCA MARLOW on 12/09/09 1321 Review of Systems Review of Systems Constitutional: no symptoms reported Eyes: No Symptoms Reported Ears, Nose, Mouth, Throat: no symptoms reported Respiratory: no symptoms reported Cardiovascular: no symptoms reported Gastrointestinal: no symptoms reported Genitourinary: no symptoms reported Musculoskeletal: no symptoms reported Psychiatric/Neurological: Headache Past Xbvpfei-Sbjmrl-Yzymko Hx Patient Social History Tobacco Use?: No Use of E-Cig and/or Vaping dev: No Substance use?: No Alcohol Use?: No Pt feels they are or have been: No Immunizations Up To Date Tetanus Booster (TDap): Less than 5yrs Seasonal Allergies Seasonal Allergies: No Past Medical History Surgery/Hospitalization HX: Migraines; Tubal; Cyst removal left knee Surgeries: Yes (Cyst removal from knee) Orthopedic, Tubal Ligation Respiratory: No Cardiac: No Neurological: Yes Headaches /Migraines Reproductive Disorders: No Sexually Transmitted Disease: No Genitourinary: No Gastrointestinal: No Musculoskeletal: No Endocrine: No HEENT: No Cancer: No Psychosocial: No Integumentary: No Blood Disorders: No Physical Exam Vital Signs Vital Signs - First Documented 12/12/22 20:55 Pulse 98 Resp 18 B/P (MAP) 135/82 (99) Pulse Ox 100 O2 Delivery Room Air Capillary Refill : Less Than 3 Seconds Height, Weight, BMI Height: 5'1.00" Weight: 200lbs. oz. 90.028884cy; 41.00 BMI Method:Stated General Appearance: WD/WN, mild distress HEENT: PERRL/EOMI, normal ENT inspection Neck: non-tender, full range of motion, supple, normal inspection Cardiovascular: regular rate, rhythm Respiratory: lungs clear Psychiatric: alert, oriented x 3 Crainal Nerves: normal hearing, normal speech, PERRL Coordination/Gait: normal gait Motor/Sensory: no motor deficit, no sensory deficit Skin: normal color Progress/Results/Core Measures Results/Orders My Orders Orders - ELBA RINCON MD Ketorolac Injection (Toradol Injection) (12/12/22 21:15) Diphenhydramine Injection (Benadryl Inje (12/12/22 21:15) Promethazine Injection (Phenergan Injec (12/12/22 21:15) Ed Iv/Invasive Line Start (12/12/22 21:14) Ns Iv 1000 Ml (Sodium Chloride 0.9%) (12/12/22 21:15) Medications Given in ED Current Medications Medications Dose Ordered Sig/Everardo Route Start Time Stop Time Status Last Admin Dose Admin Diphenhydramine HCl 25 mg ONCE ONCE IVP 12/12/22 21:15 12/12/22 21:16 DC 12/12/22 21:27 25 MG Ketorolac Tromethamine 15 mg ONCE ONCE IVP 12/12/22 21:15 12/12/22 21:16 DC 12/12/22 21:26 15 MG Promethazine HCl 25 mg ONCE ONCE IVP 12/12/22 21:15 12/12/22 21:16 DC 12/12/22 21:27 25 MG Vital Signs/I&O 12/12/22 20:55 Pulse 98 Resp 18 B/P (MAP) 135/82 (99) Pulse Ox 100 O2 Delivery Room Air Blood Pressure Mean: 99 Progress Progress Note : Progress Note 1. MIGRAINE WITH AURA: - Toradol 15mg iv/ Phenergan 25mg iv/ Benadryl 25mg iv / NS IVF bolus STAT - Pt's headache resolved with this -Advised adequate hydration -Follow-up with PCP within 7 days -The patient was seen in the ED, and treated appropriately to presentation at a specific point in time. Patient is informed that there is a possibility that disease and illness can evolve and change in acuity rapidly or slowly after patient is discharged from the ER. Precautionary advice given to the patient for immediate return to ER if symptoms worsen or do not resolve, and to seek emergency care sooner rather than later. Pt also advised on the importance of PCP follow up and compliance with management and follow up plan with PCP and/or specialist, as this is part of the management plan. Pt verbally expressed unde rstanding. Departure Impression Primary Impression: Migraine with aura Disposition: 01 HOME, SELF-CARE Condition: Improved Departure-Patient Inst. Referrals: KOJO VICK MD (PCP/Family) Primary Care Physician Patient Instructions: Migraines in Adults, How to Keep Track of Your Headaches Add. Discharge Instructions: -Advised adequate hydration -Follow-up with PCP within 7 days All discharge instructions reviewed with patient and/or family. Voiced understanding. ELBA RINCON MD Dec 12, 2022 21:07
[2022-12-12] MEDS ORDERED: KETOROLAC 15 MG/ML VIAL IVP ONE (21:15)
[2022-12-12] MEDS ORDERED: diphenhydrAMINE 50 MG/ML INJ (BENADRYL) IVP ONE (21:15)
[2022-12-12] MEDS ORDERED: PROMETHAZINE INJ 25 MG/ML (PHENERGAN) AMP IVP ONE (21:15)
[2022-12-12] MEDS ORDERED: NS IV 1000 ML 1,000 ML IV SCH (21:15)
[2022-12-12 22:41] VITALS: BP 135/82
== END 2022-12-12 22:46 | disposition home or self-care (01) ==
LOC: EDUNIT# 20:50 → ER FS 20:52
DX: G43.109 Migraine with aura, not intractable, without status migrainosus (principal); Z28.310 Unvaccinated for COVID-19

== ENCOUNTER 2023-03-22 22:11 | Emergency (ER) | payer OTHER ==
[2023-03-22] MEDS ORDERED: PROMETHAZINE INJ 25 MG/ML (PHENERGAN) AMP IM STA (22:24)
[2023-03-22] MEDS ORDERED: diphenhydrAMINE INJ 50 MG/ML VIAL IM STA (22:24)
[2023-03-22] MEDS ORDERED: KETOROLAC 30 MG/ML VIAL IM STA (22:24)
--- NOTE | 2023-03-22 22:31 | ED Headache ---
General Chief Complaint: Head/Cervical Problems Stated Complaint: MIGRAINE Source: patient History of Present Illness Date Seen by Provider: Mar 22, 2023 Time Seen by Provider: 22:15 Initial Comments 37-year-old female presenting with complaints of migraine headache that started earlier this morning. She has tried her home medicines without improvement. S he states this feels like her typical migraine. She also has been under extra stress recently as her parents were both killed in a car accident recently. She denies any fall or head injury to contribute to her migraine headache today. She has some light sensitivity and nausea. Timing/Duration: 24 hours Severity/Quality: severe Location: global Prior Headaches/Recent Trauma: frequent headaches Modifying Factors: worse with exposure to light Associated Symptoms: No confusion; fatigue; No facial pain, No fever/chills, No flushing, No loss of consciousness, No nasal congestion, No nasal drainage, No numbness in legs/feet, No rash, No seizures, No sinus infection, No stiff neck, No vision changes, No weakness Allergies and Home Medications Allergies Coded Allergies: lamotrigine (Verified Allergy, Mild, 12/09/09) Patient Home Medication List Home Medication List Reviewed: Yes Amoxicillin/Potassium Clav (Augmentin 875-125 Tablet) 1 Each Tablet, 1 EACH PO BID Prescribed by: CARA CASEY on 01/22/202011 Aripiprazole (Abilify Discmelt) 10 Mg Tab.jagjit, (Reported) Entered as Reported by: REBECCA MARLOW on 12/09/09 1323 Butalbital/Aspirin/Caffeine (Fiorinal 50-325-40 mg Capsule) 1 Each Capsule, 1 EACH PO QID Prescribed by: RIGO CASTRO on 06/22/19 1749 Cyclobenzaprine HCl (Cyclobenzaprine HCl) 10 Mg Tablet, 10 MG PO Q8H PRN for SPASMS Prescribed by: RAKAN REZA on 12/12/21 1224 Cyclobenzaprine HCl (Cyclobenzaprine HCl) 10 Mg Tablet, 10 MG PO Q8H PRN for SPASMS Prescribed by: ANDREA REYEZ on 10/10/22 1746 Fluoxetine Hcl (Fluoxetine Hcl) 20 Mg Capsule, (Reported) Entered as Reported by: REBECCA MARLOW on 12/09/09 1321 Hydrocodone Bit/Acetaminophen (Lortab 5 Mg Tablet) 1 Tab Tab, 1 EACH PO Q4-6HR PRN for PAIN-MODERATE Prescribed by: RIGO CASTRO on 04/01/19 2222 Ondansetron (Ondansetron Odt) 4 Mg Tab.rapdis, 4 MG PO TID Prescribed by: RIGO CASTRO on 06/22/19 1749 Oxycodone HCl/Acetaminophen (Endocet 5-325 Tablet) 1 Each Tablet, 1 EACH PO Q4H PRN for PAIN-MODERATE Prescribed by: DEREK SMITH on 09/13/202206 Prednisone (Prednisone) 20 Mg Tab, 40 MG PO DAILY Prescribed by: RAKAN REZA on 10/17/212236 Prochlorperazine Maleate (Compazine) 10 Mg Tablet, 10 MG PO Q8H Prescribed by: TAE GRAY on 05/06/20 1500 Topiramate (Topamax) 100 Mg Tablet, (Reported) Entered as Reported by: REBECCA MARLOW on 12/09/09 1321 Review of Systems Review of Systems Constitutional: No chills, No fever Eyes: No Symptoms Reported Ears, Nose, Mouth, Throat: no symptoms reported Respiratory: no symptoms reported Cardiovascular: no symptoms reported Gastrointestinal: see HPI Genitourinary: no symptoms reported Musculoskeletal: no symptoms reported Skin: No rash Psychiatric/Neurological: Headache Past Fbmfmsp-[id number]-Mwvtur Hx Immunizations Up To Date Tetanus Booster (TDap): Less than 5yrs Seasonal Allergies Seasonal Allergies: No Past Medical History Surgery/Hospitalization HX: Migraines; Tubal; Cyst removal left knee Surgeries: Yes (Cyst removal from knee) Orthopedic, Tubal Ligation Respiratory: No Cardiac: No Neurological: Yes Headaches /Migraines Reproductive Disorders: No Sexually Transmitted Disease: No Genitourinary: No Gastrointestinal: No Musculoskeletal: No Endocrine: No HEENT: No Cancer: No Psychosocial: No Integumentary: No Blood Disorders: No Physical Exam Vital Signs Vital Signs - First Documented 03/22/23 22:19 Temp 36.8 Pulse 105 Resp 18 B/P (MAP) 142/97 (112) Pulse Ox 99 O2 Delivery Room Air Capillary Refill : Less Than 3 Seconds Height, Weight, BMI Height: 5'1.00" Weight: 200lbs. oz. 90.630232fr; 41.00 BMI Method:Stated General Appearance: mild distress, obese HEENT: PERRL/EOMI, pharynx normal Neck: non-tender, full range of motion, supple, normal inspection Cardiovascular: normal peripheral pulses, regular rate, rhythm Respiratory: chest non-tender, lungs clear, normal breath sounds Psychiatric: alert, oriented x 3 Crainal Nerves: normal hearing, normal speech, PERRL Coordination/Gait: normal gait Motor/Sensory: no motor deficit, no sensory deficit Skin: normal color, warm/dry Progress/Results/Core Measures Results/Orders My Orders Orders - RAKAN REZA MD Ketorolac Injection (Toradol Injection) (03/22/23 22:24) Diphenhydramine Injection (Benadryl Inje (03/22/23 22:24) Promethazine Injection (Phenergan Injec (03/22/23 22:24) Vital Signs/I&O 03/22/23 03/22/23 22:19 22:35 Temp 36.8 36.8 Pulse 105 105 Resp 18 18 B/P (MAP) 142/97 (112) 142/97 Pulse Ox 99 99 O2 Delivery Room Air Room Air Blood Pressure Mean: 112 Progress Progress Note : Progress Note As patient reports that this feels like a typical migraine headache for her and she has been under extra stress we will treat with a migraine cocktail that she states has worked for her previously. She also denies any acute head injury or trauma to cause her symptoms and has not been running a fever or having chills. We will administer Toradol 30 mg IM, Benadryl 25 mg IM and Phenergan 25 mg IM. Encouraged to rest in a cool dark room and continue on her home medications. Check back with the clinic if not improving or having worsening symptoms. Departure Impression Primary Impression: Migraine headache without aura Qualified Codes: G43.019 - Migraine without aura, intractable, without status migrainosus Disposition: HOME, SELF-CARE Condition: Stable Departure-Patient Inst. Decision time for Depature: 22:31 Referrals: KOJO VICK MD (PCP/Family) Primary Care Physician Patient Instructions: Migraines in adults, Home Headache Remedies Add. Discharge Instructions: Try to rest in a cool dark room. Continue on your home medications to help with migraine and stress. Check back with the clinic if not having improvement in symptoms All discharge instructions reviewed with patient and/or family. Voiced understanding. RAKAN REZA MD Mar 22, 2023 22:31
[2023-03-22 22:35] VITALS: BP 142/97
== END 2023-03-22 22:36 | disposition home or self-care (01) ==
LOC: EDUNIT# 22:11 → ER FS 22:12
DX: G43.009 Migraine without aura, not intractable, without status migrainosus (principal); Z28.310 Unvaccinated for COVID-19
CPT/HCPCS: 99284